=== PATIENT | female | born 1945 | race Caucasian/White ===

== ENCOUNTER 2024-03-11 23:25 | Inpatient (IN) | payer MEDICARE, OTHER, SELFPAY ==
[2024-03-11 20:47] VITALS: BP 157/98
[2024-03-11 21:00] VITALS: BP 162/85; BMI 20.4
[2024-03-11 21:18] LABS: % Basophils 0.7 % (0-2); % Eosinophils 3.4 % (0-6); % Immature Granulocytes 0.3 % (0-0.5); % Lymphocytes 14.9 % (20.5-51.1); % Monocytes 6.5 % (1.7-9.3); % Neutrophils 74.2 % (42.2-75.2); Absolute Basophils 0.1 10^3/uL (0-0.2); Absolute Eosinophils 0.3 10^3/uL (0-0.7); Absolute Lymphocytes 1.4 10^3/uL (1.2-3.4); Absolute Monocytes 0.6 10^3/uL (0.1-0.6); Hematocrit 37.6 % (37.0-47.0); Hemoglobin 12.6 g/dL (12.0-16.0); Mean Corp Hgb Conc. 33.5 g/dL (33.0-37.0); Mean Corpuscular Hgb 33.6 pg (27.0-31.0); Mean Corpuscular Volume 100.3 fL (81.0-99.0); Mean Platelet Volume 9.7 fL (7.4-10.4); Nucleated Red Blood Cells % 0 %; Platelet Count 253 10^3/uL (130-400); Red Blood Cell Count 3.75 10^6/uL (4.20-5.40); White Blood Cell Count 9.4 10^3/uL (4.8-10.8)
--- NOTE | 2024-03-11 21:38 | ED.GENMED ---
History of Present Illness
General
Chief Complaint: Breathing Problem
Source: patient and family
Exam Limitations: none
Time Seen by Provider: 03/11/24 21:14
Nursing documentation reviewed up to this point in time: agreed with
History of Present Illness
History of Present Illness:
78-year-old female nondrinker non-smoker lives in assisted living with her dog she has had cough for a few weeks for PT OT said that her pulse ox was low she went to see her PCP had an outpatient x-ray [facility] showed bilateral pneumonia
prescription for her nebulizer and antibiotic was mailed and apparently was not able to be filled here she was hypoxic placed on oxygen feeling a bit better no hemoptysis, no sputum production no leg edema had pneumonia years ago with similar
symptoms had a stent a few years ago with not similar symptoms to today she feels very short of breath with any activity
Past History
Past History
ED Past Medical History: CAD; Negative CHF
Social History
Tobacco: Non-smoker
Drug: None
Personal:
Living: alone
Employment: Retired
Review of Systems
Review of Systems
All Other Systems: Not applicable
Constitutional: Reports fatigue; Denies fever
Respiratory: Reports cough and trouble breathing
Cardiac: Reports no symptoms
ABD/GI: Reports no symptoms
: Reports no symptoms
Musculoskeletal: Reports no symptoms
Skin: Reports no symptoms
Phy Exam
Physical Exam
Physical Exam:
Physical Exam
General: 78-year-old female hypoxic coughing
Neck: No jaundice
Heart: s1/s2 regular rate and rhythm, no murmur. equal radial pulses.
Lungs: Fair air movement with wheeze
Abdomen: Nontender
Neuro: alert and oriented. no focal neurological deficits
Skin: no rash
Psychiatric: well kept. interactive and cooperative
Extremities: no edema. no calf tenderness.
Scores
Heart Failure Risk
Heart Failure Risk Score: Not Applicable
Course
Orders/Labs/Results
Orders:
Orders
03/11/24 21:11
Basic Metabolic Panel Urgent
Complete Blood Count/With Diff Urgent
03/11/24 21:15
Electrocardiogram (*1) Urgent
Reason for Study: Shortness of Breath
EKG- Treatment ONCE
CR Chest - 2 Views Urgent
Comment:
Reason For Exam: soob
03/11/24 21:27
Dexamethasone Sod Phosphate [Decadron] 6 mg IV NOW STA
Ipratropium/Albuterol Sulfate [Duoneb] 3 ml INH R NOW STA
03/11/24 22:06
Azithromycin [Zithromax] 500 mg PO NOW STA
CefTRIAXone [Rocephin] 1,000 mg IV NOW STA
03/11/24 23:09
Admit/Transfer Patient As Directed
Co-Sign Provider:
Level of Care: Inpatient admission
Assign to:: Telemetry
Physician / Group: luis armando
Diagnosis: interstitial pneumonitis
Reason for Telemetry: Arrhythmia
Date to Stop Telemetry: 03/14/24
Time to Stop Telemetry: 11:00
Reason for Hospitalization: interstitial pneumonitis
Expected length of stay greater than two midnights?: Yes
ELOS- Estimated Length of Stay in days: 2
I certify the patient meets the requirements for IP care: Yes
03/11/24 23:10
Code Status As Directed
Resuscitation Status: Do not resuscitate
Reached after discussion with pt or family/Healthcare POA: Yes
DNR Bracelet Application ONCE
PRN Pain Medication Management As Directed
May give lesser potent ordered pain med per pt: Yes
preference::
Protocol:: Medication orders for pain may be administered in a
manner that supports deferring to patient preference
when the pt is:
- Requesting an ordered lesser potent pain medication.
Least to most potent pain medications are defined
as: acetaminophen < NSAID < tramadol < opioids
(morphine, oxycodone, hydromorphone).
- Requesting a lesser dose of the same medication IF
ORDERED.
- Requesting a less intrusive route of administration
if both routes are prescribed by the provider (PO <
IV).
03/11/24 23:13
Stool Culture Urgent
SARAH Source: Feces/Stool
Specimen Description:
03/12/24 00:12
Azithromycin 500 mg/250 ml [Zithromax Infusion] 500 mg in 250 ml IV Q24H
CefTRIAXone [Rocephin] 1,000 mg IV Q24H
Cholecalciferol (Vitamin D3) [VITAMIN D3 (cholecalciferol)] 25 mcg PO DAILYPRN PRN
Dexamethasone Sod Phosphate [Decadron] 4 mg IV Q8H
03/12/24 00:12
Activity As Directed
Activity Level: As Tolerated
Pneumatic Compression Sleeves As Directed
Type: Knee high
Vital Signs As Directed
Frequency: Per unit guidelines
DX Deep Vein Thrombosis Video Routine
03/12/24 06:00
Complete Blood Count/With Diff IN AM
Comprehensive Metabolic Panel IN AM
03/12/24 08:00
Acetaminophen [Tylenol] 1,000 mg PO BID
Ipratropium/Albuterol Sulfate [Duoneb] 3 ml INH R QID
Valsartan [Diovan] 40 mg PO DAILY
03/12/24 Dinner
Regular
03/12/24 22:00
Atorvastatin [Lipitor] 10 mg PO HS
Metoprolol Xl [Toprol Xl] 12.5 mg PO HS
03/14/24 11:00
DC Protocol for Telemetry ONCE
Abnormal Lab Results
03/11/24
21:11
RBC 3.75 L 10^6/uL
(4.20-5.40)
MCV 100.3 H fL
(81.0-99.0)
MCH 33.6 H pg
(27.0-31.0)
Absolute Neuts (auto) 7.0 H 10^3/uL
(1.4-6.5)
Lymphocytes % 14.9 L %
(20.5-51.1)
BUN 26 H mg/dl
(7-17)
03/11/24 21:11
03/11/24 21:11
Vital Signs
Initial and Last Documented VS:
Initial Vital Signs
Temp Pulse Resp BP Pulse Ox
98.8 F 103 22 157/98 88
03/11/24 20:47 03/11/24 20:47 03/11/24 20:47 03/11/24 20:47 03/11/24 20:47
Last Documented Vital Signs
Temp Pulse Resp BP Pulse Ox
98.8 F 93 25 143/79 93
03/11/24 20:47 03/12/24 00:00 03/12/24 00:00 03/12/24 00:00 03/12/24 00:00
MDM/Problems Addressed
Differential Diagnosis Includes:
Pneumonia bronchitis heart failure less likely PE
MDM/Problems Addressed:
Shortness of breath
Chronic conditions affecting care: CAD
Acute Exacerbation and/or Progression of Chronic Illness: CAD
*Radiology
Radiology exam reviewed: preliminary read by ED provider
*Pulse Oximetry
Patient hypoxic: yes
*EKG
Interpreted by ED Provider?: Yes
Interpretation: normal
Comparison EKG: no comparison EKG present
Heart Rate: 78
Rate: normal
Rhythm: sinus
Ischemia: no ischemia
*Critical Care Note
Total Time (30-74mins, 75-104mins- exclusive of procedures): Not Applicable
ED Attending Note
-
Portions of this chart may have been created with voice recognition software.� Occasional wrong word or��sound alike� substitutions may have occurred due to the inherent limitations of voice recognition software.
Discharge Plan
Departure
Patient Disposition: Admit
Date of Disposition: 03/11/24
Time of Disposition: 22:31
Admit to: Med/Surg
Presentation/result/management discussed w/ accepting MD/DO: Hospitalist
Patient with high blood pressure during this ER visit?: No
Condition: Fair
Covid-19: Not Applicable
Discharge Problem:
Acute hypoxic respiratory failure, Pneumonia
Interventions
Interventions:
*Risk Screen - Suicide Last Done: 03/11/24 20:47
*General Assessment Last Done: 03/11/24 20:47
*Neglect/Abuse Screening Last Done: 03/11/24 20:47
ED- Fall Risk Assessment Last Done: 03/12/24 00:10
*ED COVID-19 Vaccine History Last Done: 03/11/24 20:47
*Nursing Disposition Last Done: 03/12/24 00:10
ED- Cardiac Assessment Last Done: 03/11/24 21:00
ED- Pulmonary Assessment Last Done: 03/11/24 21:00
Discharge Date and Time
Discharge Date/Time: 03/12/24 00:10
[2024-03-11 21:46] LABS: Blood Urea Nitrogen 26 mg/dl (7-17); Calcium 9.4 mg/dl (8.4-10.2); Carbon Dioxide 23 mmol/L (22-30); Chloride 103 mmol/L (98-107); Estimated Creatinine Clearance 42 ml/min; Glucose 97 mg/dl (70-99); Sodium 140 mmol/L (135-145); eGFR > 60.00
[2024-03-11 22:39] VITALS: BP 154/98
[2024-03-11] MEDS: ROCEPHIN 1000 MG IV (22:50)
[2024-03-11] MEDS: DUONEB 3 ML INH (22:50)
[2024-03-11] MEDS: ZITHROMAX 500 MG PO (22:50)
[2024-03-11] MEDS: DECADRON 6 MG IV (22:50)
[2024-03-11 23:00] VITALS: BP 138/88
--- NOTE | 2024-03-11 23:14 | HPS.HSE ---
Family Physician
-
Family Physician: NOT KNOW UNKNOWN - PT DOES
Chief Complaint
-
cough
History of Present Illness
78-year-old female past medical history of CAD with stent, arthritis, who lives at assisted living with her dog presenting with dry cough for a few weeks associate with shortness of breath. Her pulse ox was low and she went to see her primary care
physician today and had outpatient x-ray at [facility] today which showed bilateral pneumonia. She was told to come to the emergency room.
She denies any fevers or chills. Denies any chest pain. Denies sore throat or runny nose. Denies sick contacts. She was tested for COVID and influenza primary care physician office today negative. No history of smoking.
She has been having diarrhea for the past few days and today she noticed bright red blood in the stool. No history of hemorrhoids. No rectal pain. Denies abdominal pain or nausea or vomiting. She denies prior EGD or colonoscopy. No recent
antibiotic use.
Medical History
Past Medical History
Past Medical History: Reports Other ( CAD with stent, arthritis,)
Past Surgical History: Reports None
Social History
Tobacco: Non-smoker
Alcohol: None
Drug: None
Family History
Family History: Not pertinent
Allergies / Home Medications
Allergies reflects when Allergies were last updated in [employer].
Home Medications with original date entered in [employer]
Allergy/Medication List:
Allergies
Allergy/AdvReac Type Severity Reaction Status Date / Time
No Known Allergies Allergy Unverified 03/11/24 22:46
Home Medications
acetaminophen 500 mg tablet 1,000 mg PO BID 03/11/24
aspirin 81 mg tablet,delayed release 81 mg PO HS 03/11/24
atorvastatin 10 mg tablet 10 mg PO HS 03/11/24
cholecalciferol (vitamin D3) 25 mcg (1,000 unit) tablet 25 mcg PO DAILYPRN PRN supplement 03/11/24
metoprolol succinate 25 mg tablet,extended release 24 hr 12.5 mg PO HS 03/11/24
nabumetone 500 mg tablet 500 mg PO BID 03/11/24
valsartan 40 mg tablet 40 mg PO DAILY 03/11/24
Review of Systems
-
History Source: Patient
A 12 point ROS was completed and negative except as noted: Yes
Constitutional: Reports No Symptoms
EENT: Reports No Symptoms
Respiratory: Reports See HPI
Cardiac: Reports No Symptoms
Abdomen/GI: Reports See HPI
: Reports No Symptoms
Musculoskeletal: Reports No Symptoms
Skin: Reports No Symptoms
Neurological: Reports No Symptoms
Endocrine: Reports No Symptoms
Hematologic/Lymphatic: Reports No Symptoms
Psych: Reports No Symptoms
Physical Exam
Vital Signs
Vital Signs
Temp Pulse Resp BP Pulse Ox
98.8 F 94 27 138/88 94
03/11/24 20:47 03/11/24 22:45 03/11/24 23:00 03/11/24 23:00 03/11/24 23:00
Physical Exam
General: Well Developed, Well Nourished and No Apparent Distress
HEENT: NormoCephalic, Moist mucous membranes and Atraumatic
Respiratory: Rales
Cardiac: S1/S2 and Regular Rhythm; No Murmur or Rub
GI: Soft, Non Tender, Non Distended and Normal Bowel Sounds; No Organomegaly
Rectal: Deferred by Provider
Musculoskeletal: No Clubbing, No Cyanosis and No Edema
Skin: No Rash
Neuro: Nonfocal/grossly intact
Laboratory Results
-
03/11/24 21:11
03/11/24 21:11
Laboratory Results
Total Bilirubin Cancelled 03/11/24 21:11
AST Cancelled 03/11/24 21:11
ALT Cancelled 03/11/24 21:11
Alkaline Phosphatase Cancelled 03/11/24 21:11
Data Reviewed
-
Lab Data: Labs Reviewed by me
Old Records: Reviewed
Impression/Plan
-
IMPRESSION:
PLAN:
# Severe inflammatory interstitial pneumonitis
-Tested for COVID and influenza and negative at primary care physician
-Patient on 2 L oxygen
-Bilateral crackles on examination
-Chest x-ray shows severe interstitial disease throughout both lungs mixed with mild diffuse groundglass opacity suggestive of severe inflammatory interstitial pneumonitis, mild cardiomegaly
-Ceftriaxone/azithromycin
-Dexamethasone 4 mg every 8 hours
-DuoNeb every 6 hours
# Diarrhea with bright red blood per rectum possibly diverticular versus hemorrhoids versus gastroenteritis
-Unlikely upper GI bleeding related to nabumetone
-Hold aspirin, nabumetone
-Hemoglobin stable at 12.6
-Continue to monitor for further episodes of bleeding
-check stool culture
-GI consult if persistent bleeding or anemia
CAD with history of stent
-Continue statin, metoprolol
-Hold aspirin
Essential hypertension
-Continue valsartan
Arthritis
-Hold nabumetone
DNR/DNI
DVT prophylaxis�SCDs
Regular diet
[2024-03-12] VITALS (7 sets, daily range): BP systolic 93–161; BP diastolic 49–81; BMI 20.7
[2024-03-12] MEDS: DECADRON 4 MG IV ×4 (01:08→23:19)
--- NOTE | 2024-03-12 01:11 | PTCARENOTE ---
Pt admitted to 2N. AAOx3, forgetful at times but pleasant. NRS in the monitor. Lung sounds are coarse, saO2 94-96% 4L NC. Shallow breathing and productive cough. no c/o pain. Pt appears comfortable in bed and call cole within reach. Will continue w/
tx plan.
[2024-03-12 06:51] LABS: ALT (SGPT) 14 U/L (0-35); AST (SGOT) 22 U/L (14-36); Albumin 3.5 g/dl (3.5-5.0); Alkaline Phosphatase 78 U/L (38-126); Blood Urea Nitrogen 23 mg/dl (7-17); Calcium 9.2 mg/dl (8.4-10.2); Carbon Dioxide 21 mmol/L (22-30); Chloride 106 mmol/L (98-107); Estimated Creatinine Clearance 46 ml/min; Glucose 144 mg/dl (70-99); Potassium 5.2 mmol/L (3.5-5.1); Sodium 141 mmol/L (135-145); Total Bilirubin 0.5 mg/dl (0.2-1.3); Total Protein 6.4 g/dl (6.3-8.2); eGFR > 60.00
[2024-03-12 07:00] LABS: Hematocrit 33.8 % (37.0-47.0); Hemoglobin 11.2 g/dL (12.0-16.0); Mean Corp Hgb Conc. 33.1 g/dL (33.0-37.0); Mean Corpuscular Hgb 33.6 pg (27.0-31.0); Mean Corpuscular Volume 101.5 fL (81.0-99.0); Mean Platelet Volume 10.6 fL (7.4-10.4); Platelet Count 231 10^3/uL (130-400); Red Blood Cell Count 3.33 10^6/uL (4.20-5.40); Red Cell Dist. Width 12.9 % (11.5-14.5); White Blood Cell Count 5.4 10^3/uL (4.8-10.8)
[2024-03-12] MEDS: DUONEB 3 ML INH ×4 (07:17→18:11)
[2024-03-12] MEDS: DIOVAN 40 MG PO (08:46)
[2024-03-12] MEDS: TYLENOL 1000 MG PO ×2 (08:46→19:37)
[2024-03-12 11:01] LABS: % Basophils 0.6 % (0-2); % Eosinophils 0.2 % (0-6); % Immature Granulocytes 0.2 % (0-0.5); % Lymphocytes 10.6 % (20.5-51.1); % Monocytes 0.9 % (1.7-9.3); % Neutrophils 87.5 % (42.2-75.2); Absolute Lymphocytes 0.6 10^3/uL (1.2-3.4); Absolute Monocytes 0.1 10^3/uL (0.1-0.6); Absolute Neutrophils 4.7 10^3/uL (1.4-6.5); Nucleated Red Blood Cells % 0 %
--- NOTE | 2024-03-12 12:08 | W.PN.HOSP.TC ---
Today's Communication/Plan
-
See plan
Assessment / Plan
Assessment / Plan
Impression:
Presentation with exertional dyspnea
Acute hypoxic respiratory insufficiency with pulse ox of 88% on room air.
Bilateral diffuse interstitial pulmonary infiltrates.
Diarrheal illness with hematochezia
Other conditions:
CAD with prior history of stent.
Essential hypertension impaired
Osteoarthritis
Spinal stenosis.
History of a left hip fracture with ORIF 2022.
Plan:*
Acute hypoxic respiratory insufficiency.
Bilateral pulmonary infiltrates.
Exertional dyspnea for at least 2 weeks with nonproductive cough
Denies any fever, chest pain.
Differential diagnosis: Atypical pneumonia, versus interstitial pneumonitis, versus pulmonary edema cardiac/noncardiac, reasonable concern for thromboembolic disease/PE given sedentary lifestyle.
Serology for interstitial lung disease ordered.
Prostate check BNP.
Echo.
CT PE protocol
Repeat influenza and COVID serology.
Consider pulmonology consult
Continue current coverage for community-acquired pathogens including ceftriaxone and Zithromax per
Continue corticosteroids per
Evaluated procedure BNP consider trial of diuresis.
Continue O2 supplementation to keep pulse ox above 92%
Diarrheal illness with hematochezia.
Denies any abdominal pain.
Benign abdominal examination.
Check stool for C. difficile.
Hemoglobin stable at 12.6.
Hold aspirin with hematochezia
CAD with history of stent
Continue metoprolol and atorvastatin.
Resume aspirin if no hematochezia.
Hypertension.
Continue valsartan
Osteoarthritis baseline hold nabumetone acutely.
Anticipated Discharge: 24 - 48 hours
Subjective/Interval History
-
Date of Service: March 12, 2024
Objective Data
-
Labs:
Laboratory Results
03/12/24
05:29
WBC 5.4
Hgb 11.2 L
Hct 33.8 L
Plt Count 231
Sodium 141
Potassium 5.2 H
Chloride 106
Carbon Dioxide 21 L
BUN 23 H
Creatinine 0.7
Glucose 144 H
Calcium 9.2
Total Bilirubin 0.5
AST 22
ALT 14
Alkaline Phosphatase 78
Vital Signs:
Vital Signs
Temp Pulse Resp BP Pulse Ox
98.3 F 88 16 104/55 96
03/12/24 11:26 03/12/24 11:35 03/12/24 11:35 03/12/24 11:26 03/12/24 11:35
I&O
03/11/24 03/12/24 03/13/24
06:59 06:59 06:59
Intake Total 120 / 120
Balance 120 / 120
Physical Exam
-
General: Well Developed and No Apparent Distress
HEENT: Normocephalic, Atraumatic and Moist Mucous Membranes
Respiratory: Wheezes (Diffuse biphasic) and Rhonchi
Cardiac: Regular Rhythm and S1/S2; Negative Murmur, Rub or Gallop
GI: Soft, Nontender, Nondistended and Normal Bowel Sounds; Negative Organomegaly
Rectal: Deferred by Provider
Musculoskeletal: No Clubbing, No Cyanosis and No Edema
Skin: Negative Rash
Neuro: Nonfocal/Grossly Intact
[2024-03-12 12:51] LABS: Erythrocyte Sed Rate 20 mm/hour (0-20)
[2024-03-12 13:08] LABS: Procalcitonin < 0.05 ng/ml (0.0-0.25)
[2024-03-12 13:19] LABS: Creatine Phosphokinase 53 U/L (30-135); Uric Acid 6.4 mg/dl (2.5-6.2)
[2024-03-12 13:43] LABS: NT-proBNP 2930 pg/ml
--- NOTE | 2024-03-12 13:45 | CM ---
Addendum entered by Brenda Patel 03/12/24 16:23:
Patient seen at bedside. Patient plan is to go home with her dog and PT/OT from [facility]. Await physician and PT/OT assessments. Patient currently on O2 and would be able to go to [facility] if she had 3 days INP admission to and needed
Skilled level of care. CM will continue to follow for discharge planning needs.
Plan; SNF vs home with VN pending medical treatment plan
Original Note:
Patient from [facility] where she lives with her dog. Per Karol from [place] and has had [facility] in the past. Patient has had an aide in the apartment but unclear how many
hours a day. CM will send referral to [facility] to review SNF options and facility does have a bridge to home program if personal care is needed. However patient would need to pay privately in personal care. CM will send referral to SNF for
[facility] to be aware.CM will continue to follow for discharge planning needs.
Plan; home with VN ([facility]) vs SNF at [facility].
--- NOTE | 2024-03-12 16:01 | W.PN.UPDATE ---
Update Note
Progress Note Update
CT chest negative for PE.
Findings consistent with scattered foci of reticular interstitial thickening, groundglass opacity, bronchiectasis bilaterally. Differential diagnosis includes acute interstitial pneumonitis and chronic interstitial fibrosis. No definitive lobar
pneumonia, pleural effusion, pneumothorax. Large hiatal hernia.
Elevated pro CHF BNP.
Echo pending
Will provide single dose of Lasix 40 mg IV and follow response.
[2024-03-12] MEDS: LASIX 20 MG IV (17:06)
[2024-03-12] MEDS: TOPROL XL 12.5 MG PO (20:27)
[2024-03-12 20:55] LABS: COVID-19 Antigen Negative (Negative)
[2024-03-12] MEDS: LIPITOR 10 MG PO (21:24)
[2024-03-12] MEDS: STERILE WATER FOR INJECTION 10 ML IV (21:24)
[2024-03-12] MEDS: ZITHROMAX INFUSION 250 IV (21:24)
[2024-03-12] MEDS: ROCEPHIN 1000 MG IV (21:24)
[2024-03-12] MEDS: ANESTHETIC LOZENGE 1 LOZENGE PO (21:45)
--- NOTE | 2024-03-12 22:43 | PTCARENOTE ---
Pt HR was in the 120-130 int he beginning of the shift. ST in the tele monitor. Asymptomatic. Pt metoprolol was given early. Pt HR is 100's. will continue w/ tx plan
[2024-03-13 03:40] VITALS: BP 105/61
[2024-03-13 07:45] VITALS: BP 118/67
[2024-03-13] MEDS: XOPENEX 0.63 MG INHALANT SOLUTION INH ×3 (07:54→19:58)
[2024-03-13] MEDS: DIOVAN 40 MG PO (08:00)
[2024-03-13] MEDS: DECADRON 4 MG IV ×2 (08:00→17:41)
[2024-03-13] MEDS: TYLENOL PO (10:38)
--- NOTE | 2024-03-13 10:49 | W.PN.HOSP.TC ---
Today's Communication/Plan
-
see A/P
Assessment / Plan
Assessment / Plan
Impression:
Presentation with exertional dyspnea
Acute hypoxic respiratory insufficiency with pulse ox of 88% on room air.
Bilateral diffuse interstitial pulmonary infiltrates.
Diarrheal illness with hematochezia
Other conditions:
CAD with prior history of stent.
Essential hypertension
Osteoarthritis
Spinal stenosis.
History of a left hip fracture with ORIF 2022.
Plan:
Acute hypoxic respiratory insufficiency.
Bilateral pulmonary infiltrates.
Exertional dyspnea for at least 2 weeks with nonproductive cough
Denies any fever, chest pain.
Differential diagnosis: Atypical pneumonia, versus interstitial pneumonitis, versus pulmonary edema cardiac/noncardiac, reasonable concern for thromboembolic disease/PE given sedentary lifestyle.
Serology for interstitial lung disease ordered.
BNP 2900. s/p IV Lasix 20 mg x1 dose on 03/12
Echo unrevealing: LVEF > 75%. No regional wall motion abnormalities. No significant valvular disease. No evidence of pulmonary hypertension
CT PE:
1. No evidence of pulmonary embolism or thoracic aortic dissection.
2. Scattered foci of reticular interstitial thickening, groundglass opacity, and bronchiectasis bilaterally. Differential diagnosis includes acute interstitial pneumonitis and chronic interstitial fibrosis. No definite lobar pneumonia, pleural
effusion, or pneumothorax.
3. Large hiatal hernia, containing the majority of the stomach.
Influenza and COVID serology are negative.
Pulmonology consult
Continue current coverage for community-acquired pathogens including ceftriaxone and Zithromax 5 days total. Although procal noted negative
Continue corticosteroids, currently on Decadron 4 mg Q8H
Continue O2 supplementation to keep pulse ox above 92%. Weaned O2 as tolerated, currently on 2L NC
Diarrheal illness with hematochezia.
Denies any abdominal pain.
Benign abdominal examination.
C. difficile antigen positive, toxin negative- since pt symptomatic with watery diarrhea, would empirically treat with PO vancomycin for 10 days total.
Check Norovirus,
Follow stool culture
Hemoglobin was at 12.6 on admission, today at 11.2, cont to monitor Hgb closely
Hold aspirin with hematochezia (GIB appear to have resolved)
CAD with history of stent
Continue metoprolol and atorvastatin.
Resume aspirin if no hematochezia.
Hypertension.
Continue valsartan
Osteoarthritis baseline hold nabumetone acutely.
DVT ppx: SCD
FC
Dispo: PT OT eval
DW RN
DW daughter at bedside
total time spent 51 min
Anticipated Discharge: 24 - 48 hours
Subjective/Interval History
-
Date of Service: March 13, 2024
Objective Data
-
Vital Signs:
Vital Signs
Temp Pulse Resp BP Pulse Ox
37.0 C 98 16 118/67 96
03/13/24 07:45 03/13/24 07:57 03/13/24 07:57 03/13/24 07:45 03/13/24 07:57
I&O
03/12/24 03/13/24 03/14/24
06:59 06:59 06:59
Intake Total 120 / 120 18690 120 / 120
Output Total 300 / 300
Balance 120 / 120 1869 -180 / -180
Review of Systems
-
Respiratory: Reports Trouble Breathing
Abdomen/GI: Reports Diarrhea; Denies Bloody Stools (resolved )
Physical Exam
-
General: Well Developed, Comfortable, Respiratory Distress and Conversant
HEENT: Normocephalic, Atraumatic, Moist Mucous Membranes and Oxygen (2L NC)
Respiratory: Crackles (BL bases) and Non Labored Respirations; Negative Accessory Resp Muscle Use
Cardiac: Regular Rhythm and S1/S2; Negative Murmur, Rub or Gallop
GI: Soft, Nontender, Nondistended and Normal Bowel Sounds; Negative Organomegaly
Rectal: Deferred by Provider
Musculoskeletal: No Clubbing, No Cyanosis and No Edema
Skin: Negative Rash
Neuro: Awake
Psych: Calm and Intact Judgement/Insight
Data Reviewed
-
CT Scan: Report Reviewed by me
Labs: Labs Reviewed by me
[2024-03-13 11:25] VITALS: BP 108/62
--- NOTE | 2024-03-13 12:02 | CON.PUL ---
Consultation
Consultation Request
Date/Time Consultation Requested: 03/13/2024 - 112
Date/Time Consultation Performed: 03/13/2024 - 1155
Requesting Provider: Dr. Barreto
Performing Provider: Dr. Prado
Reason for Consultation: Suspected ILD with acute exacerbation; hypoxia
Medical History
-
Chief Complaint: Bright red blood per rectum
History of Present Illness:
78-year-old female with a past medical history of CAD s/p stent with history of CA, vitamin D deficiency, lumbar radiculitis with arthritis who presents with worsening SOB associated with dry cough. She currently resides at a assisted living with
her dog. She saw her PCP prior to arrival with outpatient XR done at [facility] showing bilateral pneumonia and was told to come to the ER. She has no fevers or chills or recent sick contacts. She was tested for COVID-19 + flu and was negative
[employer]. She does report having diarrhea for the past few days and has also noticed bright red blood in her stool. No history of hemorrhoids or rectal pain, abdominal pain, nausea or vomiting. In the ER she was afebrile to 98.8 �F, pulse rate 103,
breathing at 20 breaths/min, BP 157/98 and saturating 88% on room air. Saturations improved to 95% with 2 L/min. Initial labs showed Hb 12.6, WBC 9.4, BUN 26, and proBNP 2930. CXR collected showing severe interstitial lung disease with mixed
diffuse groundglass opacities suggestive of inflammatory interstitial pneumonitis possibly with pulmonary edema. She was admitted to telemetry under the hospitalist for interstitial pneumonitis, started on antibiotics, given a dose of Lasix on
03/12, and CTA chest performed on 03/12/2024 was negative for an acute PE and showed scattered foci of reticular interstitial thickening with groundglass opacities and bronchiectasis. Also a large hiatal hernia. Due to abnormal CT findings,
pulmonary service now consulted for additional management/recommendations.
When I saw the patient he was resting in bed on 3 L/min saturating 95%. She does not follow with a lung doctor and she is a never smoker. She says her shortness of breath is better. She denies having history of lung conditions. 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 She does not believe she was ever exposed to asbestos and she says she
is never been on amiodarone. She has no prior history of interstitial lung disease or autoimmune disorder/connective tissue disease. She denies any joint stiffness, swelling or redness. She does endorse a dry cough that she has had for few weeks.
She has a dog at home which is hypoallergenic. No birds although her daughter has chickens but she is not exposed to it.
PMHx: Lumbar radiculitis, CAD with history of CA s/p stent, vitamin D deficiency, arthritis, cataracts
PSHx: Cholecystectomy, knee replacement, cataract surgery bilaterally, electrical stimulator in the back, coronary stent
Past Medical History
Past Medical History: Other (Above as per HPI)
Past Surgical History: Other (Above as per HPI)
Social History
Tobacco: Non-smoker
Alcohol: None
Drug: None
Family History
Family History: Reviewed & Not Pertinent
Allergies / Home Medications
Allergies
Allergy/AdvReac Type Severity Reaction Status Date / Time
No Known Allergies Allergy Unverified 03/11/24 22:46
Home Medications
�Medication �Instructions �Recorded �Confirmed �Last Taken �Type
acetaminophen 500 mg tablet 1,000 mg PO BID 03/11/24 03/11/24 03/11/24 History
aspirin 81 mg tablet,delayed 81 mg PO HS 03/11/24 03/11/24 03/10/24 History
release
atorvastatin 10 mg tablet 10 mg PO HS 03/11/24 03/11/24 03/10/24 History
cholecalciferol (vitamin D3) 25 25 mcg PO DAILYPRN PRN supplement 03/11/24 03/11/24 Unknown History
mcg (1,000 unit) tablet
metoprolol succinate 25 mg 12.5 mg PO HS 03/11/24 03/11/24 03/10/24 History
tablet,extended release 24 hr
nabumetone 500 mg tablet 500 mg PO BID 03/11/24 03/11/24 03/11/24 History
valsartan 40 mg tablet 40 mg PO DAILY 03/11/24 03/11/24 03/11/24 History
Review of Systems
-
History Source: Patient
All other systems: Negative unless noted
Vitals / Labs / Diagnostic Testing
Vital Signs
Temp Pulse Resp BP Pulse Ox
98.3 F 96 16 108/62 96
03/13/24 11:25 03/13/24 11:25 03/13/24 11:25 03/13/24 11:25 03/13/24 11:25
Lab Data
03/12/24 05:29
03/12/24 05:29
Microbiology
03/12/24 08:14 Feces/Stool - Final
Negative for Norovirus GI and GII.
03/12/24 08:14 Feces/Stool Salmonella/Shigella Culture - Preliminary
Culture in Progress
03/12/24 08:14 Feces/Stool Campylobacter Culture - Preliminary
Culture in Progress
03/12/24 08:14 Feces/Stool C. difficile GDH Antigen & Toxins - Final
C. difficile antigen positive, toxin negative.
Clostridium difficile present, but toxin not detected.
Patient may be a carrier, colonized with nontoxinogenic
strain or the level of toxin in sample is below detection
limits. This information should be used in conjunction with
the patient's clinical history.
03/12/24 13:52 Nasal Swab Influenza Types A & B ([facility]) - Final
Negative for Influenza A & B, NAAT
Negative results must be combined with clinical observations
and patient history.
Nucleic Acid Amplification test (NAAT)performed on the
[employer] platform.
Diagnostic Testing:
Physical Exam
-
HEENT: Normocephalic and Anicteric
Cardiovascular: S1/S2 and Peripheral Edema (negative)
Respiratory: Wheeze (negative), Rales (Bases-middle lung beebe bilaterally), Rhonchi (negative) and Accessory Resp Muscle Use (negative)
GI: Soft, Non Distended, Non Tender and Normal Bowel Sounds
Neurology: AO x 3 and Tremors (negative)
Skin: Warm and Dry
General: Respiratory Distress (negative), Comfortable, Chills (negative) and Sweats (negative)
Assessment
-
Assessment: 78-year-old female with a past medical history of CAD s/p stent with history of CA, vitamin D deficiency, lumbar radiculitis with arthritis who presents with worsening SOB associated with dry cough. She currently resides at a assisted
living with her dog. She saw her PCP prior to arrival with outpatient XR done at [facility] showing bilateral pneumonia and was told to come to the ER. She has no fevers or chills or recent sick contacts. She was tested for COVID-19 + flu and
was negative [employer]. She does report having diarrhea for the past few days and has also noticed bright red blood in her stool. No history of hemorrhoids or rectal pain, abdominal pain, nausea or vomiting. In the ER she was afebrile to 98.8 �F, pulse
rate 103, breathing at 20 breaths/min, BP 157/98 and saturating 88% on room air. Saturations improved to 95% with 2 L/min. Initial labs showed Hb 12.6, WBC 9.4, BUN 26, and proBNP 2930. CXR collected showing severe interstitial lung disease with
mixed diffuse groundglass opacities suggestive of inflammatory interstitial pneumonitis possibly with pulmonary edema. She was admitted to telemetry under the hospitalist for interstitial pneumonitis, started on antibiotics, given a dose of Lasix
on 03/12, and CTA chest performed on 03/12/2024 was negative for an acute PE and showed scattered foci of reticular interstitial thickening with groundglass opacities and bronchiectasis. Also a large hiatal hernia. Due to abnormal CT findings,
pulmonary service now consulted for additional management/recommendations.
Chronic conditions [employer]: Lumbar radiculitis, CAD with history of CA s/p stent, vitamin D deficiency, arthritis, cataracts
Impression:
#Acute respiratory failure with hypoxia on supplemental oxygen suspected to be from ILD-exacerbation (differential includes NSIP vs chronic HP vs asbestosis; unlikely UIP); MF-PNA + ADHF on DDx
#Large hiatal hernia
#Bright red blood per rectum - resolved
#CAD with history of CA s/p stent
#Osteoarthritis
#Lumbar radiculitis
Plan:
- Her CTA chest shows mosaic attenuation with subpleural reticular opacities with areas of traction bronchiectasis and a large hiatal hernia which is causing atelectasis to the adjacent lung parenchyma
- I have no prior imaging to assess the chronicity of this however this is not a classic UIP pattern; she does have some foci of intercostal calcification as well as along her medial right sided pleura, hence this does bring up possibility of
asbestosis
- Continue with systemic steroids and wean as clinically tolerated - she is currently on Decadron 4 mg IV q8hr
- Maintain euglycemia while on high dose steroids with goal BG >100 and <180mg/dL
- CTD workup is pending including HEBER screen, Yumiko 1 antibody, SSA/SSB, scleroderma panel, anti-� dsDNA AB, HP panel, RF factor, JULIANNA level and aldolase
- I will add centromere Ab and anti-CCP Ab, plus ESR and CRP
- Of note, steroids were started on evening of 03/11/2024, which was prior to her having her autoimmune/CTD blood work collected, hence normal results may not be reliable
- She is on antibiotics however the CTA chest does not appear like an infectious etiology is the cause, ambrose with a procal of <0.05; if she remains afebrile for next 24 hrs then would narrow Abx or consider stopping altogether
- Currently on ceftriaxone/zithromax
- Trend procal to assure that it remains negative
- Maintain SpO2 >90-94% with supplemental O2 and titrate down as tolerated
- Check ambulatory pulse ox prior to discharge
- If she does not improve with systemic steroids within next 24 hours then would start diuresis given elevated proBNP at 2930 (unknown baseline), however this is less likely given echo on 03/12/2024 showed an underfilled LV with hyperdynamic LVEF
at >75% with no regional WMA and RV was top normal in size with normal systolic function; also no evidence of PH though right sided heart pressures could not be determined
- Continue xopenex
- Considering she had rectal bleeding prior to arrival, would consult GI and maintain large bore IV x2
- Consider holding BB until rectal bleeding resolved for >48-72 hrs, however need to monitor for BB-withdrawal
- Transfuse blood products if needed to keep Hb>7, plt>50k
- Given her diarrhea, follow up stool Cx
- C diff Ag was positive but toxin is negative --> this is indicative of C diff colonization --> no need for PO vanc at this time; please DC; otherwise consult ID for their recs
- Incentive spirometer encouraged
- Replete electrolytes with K>4, Mg>2
- prn nebulized bronchodilators - not currently bronchospastic
- DVT ppx: SCDs for now
Pulmonary service will continue to follow along. I will arrange for outpatient office follow up for radiographic surveillance of her abnormal CT chest findings
Data:
CTA Chest 03/12/2024:
1. No evidence of pulmonary embolism or thoracic aortic dissection.
2. Scattered foci of reticular interstitial thickening, groundglass opacity, and bronchiectasis bilaterally. Differential diagnosis includes acute interstitial pneumonitis and chronic interstitial fibrosis. No definite lobar pneumonia, pleural
effusion, or pneumothorax.
3. Large hiatal hernia, containing the majority of the stomach.
TTE 03/12/2024:
Left ventricle is underfilled. Hyperdynamic LV systolic function. LVEF > 75%.
No regional wall motion abnormalities.
RV is top normal in size with normal systolic function.
No significant valvular disease.
No evidence of pulmonary hypertension though right heart pressures could not be
determined.
No prior study available for comparison.
Total time spent today was 56 minutes for this encounter. Time includes reviewing laboratory test/imaging results, reviewing pertinent medical records, obtaining and reviewing medical history, performing an appropriate exam, ordering medications,
tests and procedures. Time also includes documentation of this encounter, coordinating patient care and communicating with other healthcare professionals. Total time does not include separately billed tests performed on this date of service.
[2024-03-13 15:35] VITALS: BP 102/60
[2024-03-13] MEDS: FIRVANQ 125 MG PO (15:41)
[2024-03-13] MEDS: FLUSH (NSS) 2 FLUSH IV (17:41)
[2024-03-13 19:23] VITALS: BP 105/61
[2024-03-13] MEDS: TYLENOL 1000 MG PO (20:19)
[2024-03-13] MEDS: FIRVANQ PO (21:38)
[2024-03-13] MEDS: ZITHROMAX INFUSION 250 IV (22:26)
[2024-03-13] MEDS: ROCEPHIN 1000 MG IV (22:27)
[2024-03-13] MEDS: STERILE WATER FOR INJECTION 10 ML IV (22:27)
[2024-03-13] MEDS: TOPROL XL 12.5 MG PO (22:27)
[2024-03-13] MEDS: LIPITOR 10 MG PO (22:27)
[2024-03-13 23:26] VITALS: BP 114/62
[2024-03-14] MEDS: DECADRON 4 MG IV ×3 (00:31→16:04)
[2024-03-14 03:13] VITALS: BP 116/67
[2024-03-14 05:44] LABS: Hematocrit 28.8 % (37.0-47.0); Hemoglobin 9.7 g/dL (12.0-16.0); Mean Corp Hgb Conc. 33.7 g/dL (33.0-37.0); Mean Corpuscular Hgb 34.4 pg (27.0-31.0); Mean Corpuscular Volume 102.1 fL (81.0-99.0); Mean Platelet Volume 10.2 fL (7.4-10.4); Platelet Count 231 10^3/uL (130-400); Red Blood Cell Count 2.82 10^6/uL (4.20-5.40); Red Cell Dist. Width 13.1 % (11.5-14.5); White Blood Cell Count 15.9 10^3/uL (4.8-10.8)
[2024-03-14 06:11] LABS: Procalcitonin < 0.05 ng/ml (0.0-0.25)
[2024-03-14 06:17] LABS: Blood Urea Nitrogen 35 mg/dl (7-17); Calcium 8.9 mg/dl (8.4-10.2); Carbon Dioxide 24 mmol/L (22-30); Chloride 105 mmol/L (98-107); Estimated Creatinine Clearance 36 ml/min; Glucose 142 mg/dl (70-99); Magnesium 2.4 mg/dl (1.6-2.3); Phosphorus 3.8 mg/dl (2.5-4.5); Potassium 5.1 mmol/L (3.5-5.1); Sodium 138 mmol/L (135-145); eGFR > 60.00
[2024-03-14 06:30] VITALS: BMI 20.8
[2024-03-14] MEDS: XOPENEX 0.63 MG INHALANT SOLUTION INH ×3 (07:52→20:35)
[2024-03-14 08:00] VITALS: BP 132/71
[2024-03-14] MEDS: FLUSH (NSS) 2 FLUSH IV ×2 (08:48→16:07)
[2024-03-14] MEDS: DIOVAN 40 MG PO (08:49)
[2024-03-14] MEDS: ANESTHETIC LOZENGE 1 LOZENGE PO (08:49)
[2024-03-14] MEDS: TYLENOL PO (08:51)
--- NOTE | 2024-03-14 09:42 | W.PN.PUL3 ---
Today's Communication / Plan
-
Continue systemic steroids and wean as tolerated - lower Decadron to 4 mg IV q12hr starting tomorrow
Xopenex TID
Procal is negative x 2 and she appears nontoxic - would at least narrow antibiotics and consider stopping altogether; rec'd short course if antibiotics continue
Up OOB as tolerated
PT/OT - rec'd home health
Follow-up autoimmune/CTD panel
Wean down O2 to keep SpO2 >90-94%
Outpatient follow-up with full PFTs --> check ambulatory pulse oximetry prior to discharge
Pulmonary service will continue to follow along while she remains hospitalized
Assessment
-
Assessment: 78-year-old female with a past medical history of CAD s/p stent with history of IN, vitamin D deficiency, lumbar radiculitis with arthritis who presents with worsening SOB associated with dry cough. She currently resides at a assisted
living with her dog. She saw her PCP prior to arrival with outpatient XR done at [facility] showing bilateral pneumonia and was told to come to the ER. She has no fevers or chills or recent sick contacts. She was tested for COVID-19 + flu and
was negative [employer]. She does report having diarrhea for the past few days and has also noticed bright red blood in her stool. No history of hemorrhoids or rectal pain, abdominal pain, nausea or vomiting. In the ER she was afebrile to 98.8 �F, pulse
rate 103, breathing at 20 breaths/min, BP 157/98 and saturating 88% on room air. Saturations improved to 95% with 2 L/min. Initial labs showed Hb 12.6, WBC 9.4, BUN 26, and proBNP 2930. CXR collected showing severe interstitial lung disease with
mixed diffuse groundglass opacities suggestive of inflammatory interstitial pneumonitis possibly with pulmonary edema. She was admitted to telemetry under the hospitalist for interstitial pneumonitis, started on antibiotics, given a dose of Lasix
on 03/12, and CTA chest performed on 03/12/2024 was negative for an acute PE and showed scattered foci of reticular interstitial thickening with groundglass opacities and bronchiectasis. Also a large hiatal hernia. Due to abnormal CT findings,
pulmonary service now consulted for additional management/recommendations.
Chronic conditions [employer]: Lumbar radiculitis, CAD with history of IN s/p stent, vitamin D deficiency, arthritis, cataracts
Impression:
#Acute respiratory failure with hypoxia on supplemental oxygen suspected to be from ILD-exacerbation (differential includes NSIP vs chronic HP vs asbestosis; unlikely UIP); MF-PNA vs ADHF on DDx
#Large hiatal hernia
#Bright red blood per rectum - resolved
#CAD with history of IN s/p stent
#Osteoarthritis
#Lumbar radiculitis
Plan:
- Her CTA chest shows mosaic attenuation with subpleural reticular opacities with areas of traction bronchiectasis and a large hiatal hernia which is causing atelectasis to the adjacent lung parenchyma
- I have no prior imaging to assess the chronicity of this however this is not a classic UIP pattern; she does have some foci of intercostal calcification as well as along her medial right sided pleura, hence this does bring up possibility of
asbestosis
- Continue with systemic steroids and wean as clinically tolerated - she is currently on Decadron 4 mg IV q8hr --> wean down to 4mg IV q12hr starting tomorrow AM
- Maintain euglycemia while on high dose steroids with goal BG >100 and <180mg/dL
- CTD workup is pending including HEBER screen, Yumiko 1 antibody, SSA/SSB, scleroderma panel, anti-� dsDNA AB, HP panel, RF factor, JULIANNA level and aldolase
- I added centromere Ab and anti-CCP Ab, and CRP; ESR is low at 20
- Of note, steroids were started on evening of 03/11/2024, which was prior to her having her autoimmune/CTD blood work collected, hence normal results may not be reliable
- She is on antibiotics however the CTA chest does not appear like an infectious etiology is the cause, ambrose with a procal of <0.05 x2; since she has remained afebrile for 24 hrs, would narrow Abx to Unasyn and give short course
- Currently on ceftriaxone/zithromax
- Maintain SpO2 >90-94% with supplemental O2 and titrate down as tolerated
- Check ambulatory pulse ox prior to discharge
- If she deteriorates while on systemic steroids then would start diuresis given elevated proBNP at 2930 (unknown baseline), however this is less likely given echo on 03/12/2024 showed an underfilled LV with hyperdynamic LVEF at >75% with no
regional WMA and RV was top normal in size with normal systolic function; also no evidence of PH though right sided heart pressures could not be determined
- Continue xopenex TID
- Considering she had rectal bleeding prior to arrival, would consult GI and maintain large bore IV x2
- Consider holding BB until rectal bleeding resolved for >48-72 hrs, however need to monitor for BB-withdrawal
- Transfuse blood products if needed to keep Hb>7, plt>50k
- Given her diarrhea, follow up stool Cx
- C diff Ag was positive but toxin is negative --> this is indicative of C diff colonization --> no need for PO vanc at this time; please DC; otherwise consult ID for their recs
- Incentive spirometer encouraged
- Replete electrolytes with K>4, Mg>2
- prn nebulized bronchodilators - not currently bronchospastic
- DVT ppx: SCDs for now; If HB remains stable for 48-72 hrs with no signs of bleeding then would start chemical ppx
Pulmonary service will continue to follow along. I will arrange for outpatient office follow up for radiographic surveillance of her abnormal CT chest findings.
Data:
CTA Chest 03/12/2024:
1. No evidence of pulmonary embolism or thoracic aortic dissection.
2. Scattered foci of reticular interstitial thickening, groundglass opacity, and bronchiectasis bilaterally. Differential diagnosis includes acute interstitial pneumonitis and chronic interstitial fibrosis. No definite lobar pneumonia, pleural
effusion, or pneumothorax.
3. Large hiatal hernia, containing the majority of the stomach.
TTE 03/12/2024:
Left ventricle is underfilled. Hyperdynamic LV systolic function. LVEF > 75%.
No regional wall motion abnormalities.
RV is top normal in size with normal systolic function.
No significant valvular disease.
No evidence of pulmonary hypertension though right heart pressures could not be
determined.
No prior study available for comparison.
Total time spent today was 38 minutes for this encounter. Time includes reviewing laboratory test/imaging results, reviewing pertinent medical records, obtaining and reviewing medical history, performing an appropriate exam, ordering medications,
tests and procedures. Time also includes documentation of this encounter, coordinating patient care and communicating with other healthcare professionals. Total time does not include separately billed tests performed on this date of service.
Subjective Data
-
Date of Service:
Date of Service: March 14, 2024
Chief Complaint: Pulmonary Follow Up
Subjective:
Patient seen and evaluated today at bedside. She says she feels great. No shortness of breath, and she worked with physical therapy today and had no difficulty although she says she did not walk a long distance. She currently denies chest pain,
PATTERSON, abdominal pain, nausea, fevers or chills.
Review of Systems
General: Other (Negative unless mentioned above)
Objective Data
Data Reviewed
Vital Signs / I&O / Oxygen:
Vital Signs
Temp Pulse Resp BP Pulse Ox
97.8 F 73 19 132/71 96
03/14/24 08:00 03/14/24 08:00 03/14/24 08:00 03/14/24 08:00 03/14/24 08:00
Intake and Output
03/13/24 03/14/24 03/15/24
06:59 06:59 06:59
Intake Total 1870 / 1870 1330 / 1330
Output Total 1300 / 1300
Balance 1870 / 1870 30 / 30
SaO2 96
Nasal Cannula flow liters per 3
minute
Physical Exam
General: Respiratory Distress (negative), Comfortable, Chills (negative) and Sweats (negative)
HEENT: Normocephalic and Anicteric
Cardiovascular: S1-S2, Murmur (negative) and Peripheral Edema (negative)
Respiratory: Wheeze (negative), Crackles (Bibasilar), Rhonchi (negative) and Non-Labored Respirations
GI: Soft, Non Distended, Non Tender and Normal Bowel Sounds
Neurology: Awake, Alert and Tremors (negative)
Skin: Warm, Dry, Cyanosis (negative) and Jaundice (negative)
Labs/Micro/Reports
Lab Data
03/14/24 05:31
03/14/24 05:31
Microbiology
03/12/24 08:14 Feces/Stool - Final
Negative for Norovirus GI and GII.
03/12/24 08:14 Feces/Stool Salmonella/Shigella Culture - Preliminary
Culture in Progress
03/12/24 08:14 Feces/Stool Campylobacter Culture - Preliminary
Culture in Progress
03/12/24 08:14 Feces/Stool C. difficile GDH Antigen & Toxins - Final
C. difficile antigen positive, toxin negative.
Clostridium difficile present, but toxin not detected.
Patient may be a carrier, colonized with nontoxinogenic
strain or the level of toxin in sample is below detection
limits. This information should be used in conjunction with
the patient's clinical history.
03/12/24 13:52 Nasal Swab Influenza Types A & B (LE[facility]) - Final
Negative for Influenza A & B, NAAT
Negative results must be combined with clinical observations
and patient history.
Nucleic Acid Amplification test (NAAT)performed on the
[employer] platform.
--- NOTE | 2024-03-14 11:18 | W.PN.HOSP.TC ---
Today's Communication/Plan
-
see A/P
Assessment / Plan
Assessment / Plan
Impression:
Presentation with exertional dyspnea
Acute hypoxic respiratory insufficiency with pulse ox of 88% on room air.
Bilateral diffuse interstitial pulmonary infiltrates.
Diarrheal illness with hematochezia
Other conditions:
CAD with prior history of stent.
Essential hypertension
Osteoarthritis
Spinal stenosis.
History of a left hip fracture with ORIF 2022.
Plan:
Acute hypoxic respiratory insufficiency.
Bilateral pulmonary infiltrates.
Exertional dyspnea for at least 2 weeks with nonproductive cough
Denies any fever, chest pain.
Differential diagnosis: Atypical pneumonia, versus interstitial pneumonitis, versus pulmonary edema cardiac/noncardiac, reasonable concern for thromboembolic disease/PE given sedentary lifestyle.
Serology for interstitial lung disease ordered.
BNP 2900. s/p IV Lasix 20 mg x1 dose on 03/12
Echo unrevealing: LVEF > 75%. No regional wall motion abnormalities. No significant valvular disease. No evidence of pulmonary hypertension
CT PE:
1. No evidence of pulmonary embolism or thoracic aortic dissection.
2. Scattered foci of reticular interstitial thickening, groundglass opacity, and bronchiectasis bilaterally. Differential diagnosis includes acute interstitial pneumonitis and chronic interstitial fibrosis. No definite lobar pneumonia, pleural
effusion, or pneumothorax.
3. Large hiatal hernia, containing the majority of the stomach.
Influenza and COVID serology are negative.
Pulmonology consulted
Continue current coverage for community-acquired pathogens including ceftriaxone and Zithromax 5 days total. Although procal noted negative
Continue corticosteroids, currently on Decadron 4 mg Q8H
Continue O2 supplementation to keep pulse ox above 92%. Weaned O2 as tolerated, currently on 2-3L NC
Diarrheal illness with hematochezia.
Denies any abdominal pain.
Benign abdominal examination.
C. difficile antigen positive, toxin negative- since pt was symptomatic with watery diarrhea, empirically treat with PO vancomycin for 10 days total.
Norovirus negative,
Follow stool culture
Hemoglobin was at 12.6 on admission, today at 9.7, cont to monitor Hgb closely
Hold aspirin with hematochezia (GIB appear to have resolved)
CAD with history of stent
Continue metoprolol and atorvastatin.
Resume aspirin if no hematochezia.
Hypertension.
Continue valsartan
Osteoarthritis baseline hold nabumetone acutely.
DVT ppx: SCD
FC
Dispo: PT OT eval
DW RN
DW daughter at bedside 03/13
Anticipated Discharge: > 48 hours
Subjective/Interval History
-
Date of Service: March 14, 2024
Objective Data
-
Labs:
Laboratory Results
03/14/24
05:31
WBC 15.9 H
Hgb 9.7 L
Hct 28.8 L
Plt Count 231
Sodium 138
Potassium 5.1
Chloride 105
Carbon Dioxide 24
BUN 35 H
Creatinine 0.9
Glucose 142 H
Calcium 8.9
Vital Signs:
Vital Signs
Temp Pulse Resp BP Pulse Ox
36.6 C 73 19 132/71 96
03/14/24 08:00 03/14/24 08:00 03/14/24 08:00 03/14/24 08:00 03/14/24 08:00
I&O
03/13/24 03/14/24 03/15/24
06:59 06:59 06:59
Intake Total 1869 1330 / 1330
Output Total 1300 / 1300
Balance 1869 30 30
Review of Systems
-
Respiratory: Reports Trouble Breathing
Abdomen/GI: Denies Diarrhea (resolved ) or Bloody Stools (resolved )
Physical Exam
-
General: Well Developed, Comfortable, Respiratory Distress and Conversant
HEENT: Normocephalic, Atraumatic, Moist Mucous Membranes and Oxygen (2L NC)
Respiratory: Crackles (BL bases) and Non Labored Respirations; Negative Accessory Resp Muscle Use
Cardiac: Regular Rhythm and S1/S2; Negative Murmur, Rub or Gallop
GI: Soft, Nontender, Nondistended and Normal Bowel Sounds; Negative Organomegaly
Rectal: Deferred by Provider
Musculoskeletal: No Clubbing, No Cyanosis and No Edema
Skin: Negative Rash
Neuro: Awake
Psych: Calm and Intact Judgement/Insight
Data Reviewed
-
CT Scan: Report Reviewed by me
Labs: Labs Reviewed by me
[2024-03-14 11:45] VITALS: BP 126/61; PULSE 78; O2SAT 98
[2024-03-14 15:47] VITALS: BP 111/66; BP 175/76; PULSE 101; PULSE 93; O2SAT 95
[2024-03-14 16:45] VITALS: BP 127/62
[2024-03-14] MEDS: TYLENOL 1000 MG PO (19:56)
[2024-03-14] MEDS: LIPITOR 10 MG PO (21:30)
[2024-03-14] MEDS: ROCEPHIN 1000 MG IV (21:30)
[2024-03-14] MEDS: TOPROL XL 12.5 MG PO (21:31)
[2024-03-14] MEDS: STERILE WATER FOR INJECTION 10 ML IV (21:31)
[2024-03-14] MEDS: ZITHROMAX INFUSION 250 IV (21:31)
[2024-03-14 23:27] VITALS: BP 112/67
[2024-03-14 23:32] LABS: ANA, IgG Reflex to HEp-2 Detected (None Detected)
[2024-03-14 23:49] LABS: ds-DNA Ab, IgG Reflex To Titer 7 IU (0-24)
[2024-03-15] MEDS: DECADRON 4 MG IV ×2 (00:17→08:39)
[2024-03-15 07:31] LABS: Hematocrit 30.6 % (37.0-47.0); Hemoglobin 10.2 g/dL (12.0-16.0); Mean Corp Hgb Conc. 33.3 g/dL (33.0-37.0); Mean Corpuscular Hgb 34.2 pg (27.0-31.0); Mean Corpuscular Volume 102.7 fL (81.0-99.0); Mean Platelet Volume 10.3 fL (7.4-10.4); Platelet Count 241 10^3/uL (130-400); Red Blood Cell Count 2.98 10^6/uL (4.20-5.40); Red Cell Dist. Width 13.1 % (11.5-14.5); White Blood Cell Count 10.6 10^3/uL (4.8-10.8)
[2024-03-15] MEDS: XOPENEX 0.63 MG INHALANT SOLUTION INH ×3 (07:37→19:14)
[2024-03-15 07:40] VITALS: BP 125/68
[2024-03-15 07:59] LABS: Blood Urea Nitrogen 30 mg/dl (7-17); Calcium 8.8 mg/dl (8.4-10.2); Carbon Dioxide 25 mmol/L (22-30); Chloride 104 mmol/L (98-107); Estimated Creatinine Clearance 46 ml/min; Glucose 126 mg/dl (70-99); Potassium 4.6 mmol/L (3.5-5.1); Sodium 139 mmol/L (135-145); eGFR > 60.00
[2024-03-15 08:04] LABS: C-Reactive Protein < 5.00 mg/L (0.0-10.00)
[2024-03-15] MEDS: DIOVAN 40 MG PO (08:37)
[2024-03-15] MEDS: TYLENOL 1000 MG PO ×2 (08:39→19:52)
[2024-03-15 08:50] LABS: IgE 12 kU/L (<=214)
--- NOTE | 2024-03-15 09:17 | W.PN.PUL3 ---
Today's Communication / Plan
-
Maintained on low supplemental o2, Home O2 eval
Would consider adding diuresis given elevated proBNP
Observe off abx for respiratory infection, PO vanc noted for C diff
Transition IV steroids to PO course, taper at discharge
Encouraged OOB, PT/OT
Discharge planning per team, hopefully in next 24 hours
OP Pulm FU arrangements
Assessment
-
78-year-old female with a past medical history of CAD s/p stent with history of SD, vitamin D deficiency, lumbar radiculitis with arthritis who presents with worsening SOB associated with dry cough. She currently resides at a assisted living with
her dog. She saw her PCP prior to arrival with outpatient XR done at [facility] showing bilateral pneumonia and was told to come to the ER. She has no fevers or chills or recent sick contacts. She was tested for COVID-19 + flu and was negative
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 She does report having diarrhea for the past few days and has also noticed bright red blood in her stool. No history of hemorrhoids or rectal pain, abdominal pain, nausea or vomiting. In the ER she was afebrile to 98.8 �F, pulse rate 103,
breathing at 20 breaths/min, BP 157/98 and saturating 88% on room air. Saturations improved to 95% with 2 L/min. Initial labs showed Hb 12.6, WBC 9.4, BUN 26, and proBNP 2930. CXR collected showing severe interstitial lung disease with mixed
diffuse groundglass opacities suggestive of inflammatory interstitial pneumonitis possibly with pulmonary edema. She was admitted to telemetry under the hospitalist for interstitial pneumonitis, started on antibiotics, given a dose of Lasix on
03/12, and CTA chest performed on 03/12/2024 was negative for an acute PE and showed scattered foci of reticular interstitial thickening with groundglass opacities and bronchiectasis. Also a large hiatal hernia. Due to abnormal CT findings,
pulmonary service now consulted for additional management/recommendations.
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
Impression:
#Acute respiratory failure with hypoxia on supplemental oxygen suspected to be from ILD-exacerbation (differential includes NSIP vs chronic HP vs asbestosis; unlikely UIP); MF-PNA vs ADHF on DDx
#Large hiatal hernia
#Bright red blood per rectum - resolved
#CAD with history of SD s/p stent
#Osteoarthritis
#Lumbar radiculitis
Plan
Currently on 2.5L O2
Not known to be on home O2 use
Can repeat home O2 needs at discharge
Her CTA chest shows mosaic attenuation with subpleural reticular opacities with areas of traction bronchiectasis and a large hiatal hernia which is causing atelectasis to the adjacent lung parenchyma
I have no prior imaging to assess the chronicity of this however this is not a classic UIP pattern; she does have some foci of intercostal calcification as well as along her medial right sided pleura, hence this does bring up possibility of
asbestosis
Continue with systemic steroids and wean as clinically tolerated - transition to PO prednisone today
Maintain euglycemia while on high dose steroids with goal BG >100 and <180mg/dL
CTD workup is pending including HEBER screen, Yumiko 1 antibody, SSA/SSB, scleroderma panel, anti-� dsDNA AB, HP panel, RF factor, JULIANNA level and aldolase
I added centromere Ab and anti-CCP Ab, and CRP; ESR is low at 20--this can be followed as OP
She is on antibiotics however the CTA chest does not appear like an infectious etiology is the cause, ambrose with a procal of <0.05 x2
Would stop abx and observe off
Maintain SpO2 >90-94% with supplemental O2 and titrate down as tolerated
Check ambulatory pulse ox prior to discharge
Continue xopenex TID
Consider diuresis
Elevated proBNP at 2930 (unknown baseline)
Reviewed echo on 03/12/2024 showed an underfilled LV with hyperdynamic LVEF at >75% with no regional WMA and RV was top normal in size with normal systolic function; no evidence of PH though right sided heart pressures could not be determined
Considering she had rectal bleeding prior to arrival, monitor for recurrence
Transfuse blood products if needed to keep Hb>7, plt>50k
Given her diarrhea, follow up stool Cx
C diff Ag was positive but toxin is negative --> started on PO vanc
Incentive spirometer encouraged
Replete electrolytes with K>4, Mg>2
prn nebulized bronchodilators - not currently bronchospastic
DVT ppx: SCDs for now; If HB remains stable for 48-72 hrs with no signs of bleeding then would start chemical ppx
Pulmonary service will continue to follow along.
I will arrange for outpatient office follow up for radiographic surveillance of her abnormal CT chest findings.
Data:
CTA Chest 03/12/2024: 1. No evidence of pulmonary embolism or thoracic aortic dissection.
2. Scattered foci of reticular interstitial thickening, groundglass opacity, and bronchiectasis bilaterally. Differential diagnosis includes acute interstitial pneumonitis and chronic interstitial fibrosis. No definite lobar pneumonia, pleural
effusion, or pneumothorax.
3. Large hiatal hernia, containing the majority of the stomach.
CXR 03/11/24- 1. Severe interstitial disease throughout both lungs mixed with mild diffuse ground-glass opacity most suggestive of a SEVERE INFLAMMATORY INTERSTITIAL PNEUMONITIS. Acute interstitial and alveolar cardiogenic pulmonary edema is
considered less likely.
2. Mild cardiomegaly.
3. Severe multilevel thoracolumbar discogenic degenerative disease.
4. Moderate to severe left convex curvature of the upper lumbar spine, moderately exaggerated thoracic kyphosis, and spinal stimulator wires in the midthoracic spinal canal.
5. Diffuse bone demineralization.
TTE 03/12/2024: Left ventricle is underfilled. Hyperdynamic LV systolic function. LVEF > 75%. No regional wall motion abnormalities. RV is top normal in size with normal systolic function.
No significant valvular disease. No evidence of pulmonary hypertension though right heart pressures could not be determined. No prior study available for comparison.
-----
Total time spent today was 50 minutes for this encounter. Time includes reviewing laboratory test/imaging results, reviewing pertinent medical records, obtaining and reviewing medical history, performing an appropriate exam, ordering medications,
tests and procedures. Time also includes documentation of this encounter, coordinating patient care and communicating with other healthcare professionals. Total time does not include separately billed tests performed on this date of service.
Subjective Data
-
Date of Service:
Date of Service: March 15, 2024
Chief Complaint: Pulmonary Follow Up
Subjective:
No acute events ON, remains on 2-3L NC
No complaints, feels her SOB is stable
Objective Data
Data Reviewed
Vital Signs / I&O / Oxygen:
Vital Signs
Temp Pulse Resp BP Pulse Ox
97.8 F 93 18 125/68 98
03/15/24 07:40 03/15/24 08:37 03/15/24 07:40 03/15/24 08:37 03/15/24 07:40
Intake and Output
03/14/24 03/15/24 03/16/24
06:59 06:59 06:59
Intake Total 1330 / 1330 960 / 960
Output Total 1300 / 1300 1150 / 1150
Balance 30 / 30 -190 / -190
SaO2 98
Nasal Cannula flow liters per 7
minute
Physical Exam
General: Respiratory Distress (negative), Comfortable, Chills (negative), Sweats (negative) and Good Appetite
HEENT: Normocephalic and Anicteric
Cardiovascular: S1-S2, Murmur (negative) and Peripheral Edema (negative)
Respiratory: Clear, Wheeze (negative), Rhonchi (negative) and Non-Labored Respirations
GI: Soft, Non Distended, Non Tender and Normal Bowel Sounds
Neurology: Awake, Alert, Oriented, No Motor Deficits and Tremors (negative)
Skin: Warm, Dry, Cyanosis (negative) and Jaundice (negative)
Labs/Micro/Reports
Lab Data
03/15/24 06:54
03/15/24 06:54
Microbiology
03/12/24 08:14 Feces/Stool Salmonella/Shigella Culture - Final
No Salmonella, Shigella, Aeromonas or Plesiomonas species
isolated.
03/12/24 08:14 Feces/Stool Campylobacter Culture - Final
No Campylobacter species isolated.
03/12/24 08:14 Feces/Stool - Final
Negative for Norovirus GI and GII.
03/12/24 08:14 Feces/Stool C. difficile GDH Antigen & Toxins - Final
C. difficile antigen positive, toxin negative.
Clostridium difficile present, but toxin not detected.
Patient may be a carrier, colonized with nontoxinogenic
strain or the level of toxin in sample is below detection
limits. This information should be used in conjunction with
the patient's clinical history.
03/12/24 13:52 Nasal Swab Influenza Types A & B ([facility]) - Final
Negative for Influenza A & B, NAAT
Negative results must be combined with clinical observations
and patient history.
Nucleic Acid Amplification test (NAAT)performed on the
[employer] platform.
[2024-03-15 11:08] VITALS: PULSE 87; O2SAT 95
[2024-03-15 12:01] LABS: ANA, HEp-2, IgG Detected (<1:80)
[2024-03-15 12:47] LABS: Jo-1 Antibodies 4 AU/mL (0-40); SSA 52 (Ro)(ENA) Ab, IgG 1 AU/mL (0-40); SSA 60 (Ro)(ENA) Ab, IgG 0 AU/mL (0-40); SSB (La)(ENA) Ab, IgG 0 AU/mL (0-40); Scleroderma Antibody (Scl-70) 8 AU/mL (0-40)
--- NOTE | 2024-03-15 13:08 | PTCARENOTE ---
pt is av paced on the monitor, hr in the 80s, vss. pt offers no complaints at this time. pt educated on plan of care for the day and pt verbalized understanding. pt worked w/ pt/ot and tolerated well. call cole within reach.
[2024-03-15] MEDS: LASIX 40 MG IV (13:34)
[2024-03-15 13:56] LABS: Aldolase 2.4 U/L (1.2-7.6); Angiotensin-1-converting Enzym <10 U/L (16-85)
--- NOTE | 2024-03-15 14:07 | CM ---
CM met with pt bedside
She notes dc is anticipated tomorrow
Continues with oxygen weaning
Therapy following with VN recs
Pt is hopeful to return home with outpt PT/OT through [facility]
If O2 is needed on dc, in agreement with VN through [facility] for home O2 support
Update to Kianna/[facility] [phone]
Kianna is requesting copy of outpt scripts to be faxed to her to submit to therapy team (fax- [phone])
Discharge Disposition- home with outpt therapy [facility] vs home with [facility] VN and home O2
[2024-03-15 15:40] VITALS: BP 123/65
--- NOTE | 2024-03-15 16:20 | W.PN.HOSP.TC ---
Today's Communication/Plan
-
Transition to oral prednisone
Observe off antibiotics
Additional diuresis IV Lasix will be provided 40 mg today.
Attempt to wean off oxygen
Home O2 evaluation in a.m.
Continue oral vancomycin
Assessment / Plan
Assessment / Plan
Impression:
Presentation with exertional dyspnea
Acute hypoxic respiratory insufficiency with pulse ox of 88% on room air.
Bilateral diffuse interstitial pulmonary infiltrates.
Diarrheal illness with hematochezia
Other conditions:
CAD with prior history of stent.
Essential hypertension
Osteoarthritis
Spinal stenosis.
History of a left hip fracture with ORIF 2022.
Plan:
Acute hypoxic respiratory insufficiency.
Bilateral pulmonary infiltrates.
Exertional dyspnea for at least 2 weeks with nonproductive cough
Denies any fever, chest pain.
Differential diagnosis: Atypical pneumonia, versus interstitial pneumonitis, versus pulmonary edema cardiac/noncardiac, reasonable concern for thromboembolic disease/PE given sedentary lifestyle.
Serology for interstitial lung disease ordered.
BNP 2900. s/p IV Lasix 20 mg x1 dose on 03/12
Echo unrevealing: LVEF > 75%. No regional wall motion abnormalities. No significant valvular disease. No evidence of pulmonary hypertension
CT PE:
1. No evidence of pulmonary embolism or thoracic aortic dissection.
2. Scattered foci of reticular interstitial thickening, groundglass opacity, and bronchiectasis bilaterally. Differential diagnosis includes acute interstitial pneumonitis and chronic interstitial fibrosis. No definite lobar pneumonia, pleural
effusion, or pneumothorax.
3. Large hiatal hernia, containing the majority of the stomach.
Influenza and COVID serology are negative.
Pulmonology consulted
Continue current coverage for community-acquired pathogens including ceftriaxone and Zithromax 5 days total. Although procal noted negative
Transition to prednisone on 03/15
Continue O2 supplementation to keep pulse ox above 92%. Weaned O2 as tolerated, currently on 2-3L NC
Diarrheal illness with hematochezia.
Denies any abdominal pain.
Benign abdominal examination.
C. difficile antigen positive, toxin negative- since pt was symptomatic with watery diarrhea, empirically treat with PO vancomycin for 10 days total.
Norovirus negative,
Follow stool culture
Hemoglobin was at 12.6 on admission, today at 9.7, cont to monitor Hgb closely
Hold aspirin with hematochezia (GIB appear to have resolved)
CAD with history of stent
Continue metoprolol and atorvastatin.
Resume aspirin if no hematochezia.
Hypertension.
Continue valsartan
Osteoarthritis baseline hold nabumetone acutely.
DVT ppx: SCD
FC
Dispo: PT OT eval
DW RN
DW daughter at bedside 03/13
Anticipated Discharge: 24 - 48 hours
Subjective/Interval History
-
Date of Service: March 15, 2024
Objective Data
-
Labs:
Laboratory Results
03/15/24
06:54
WBC 10.6
Hgb 10.2 L
Hct 30.6 L
Plt Count 241
Sodium 139
Potassium 4.6
Chloride 104
Carbon Dioxide 25
BUN 30 H
Creatinine 0.7
Glucose 126 H
Calcium 8.8
Vital Signs:
Vital Signs
Temp Pulse Resp BP Pulse Ox
98.0 F 87 16 123/65 95
03/15/24 15:40 03/15/24 15:40 03/15/24 15:40 03/15/24 15:40 03/15/24 15:40
I&O
03/14/24 03/15/24 03/16/24
06:59 06:59 06:59
Intake Total 1330 / 1330 960 / 960 480 / 480
Output Total 1300 / 1300 1150 / 1150
Balance 30 / 30 -190 / -190 480 / 480
Physical Exam
-
General: Well Developed, Comfortable, Respiratory Distress and Conversant
HEENT: Normocephalic, Atraumatic, Moist Mucous Membranes and Oxygen (2L NC)
Respiratory: Crackles (BL bases) and Non Labored Respirations; Negative Accessory Resp Muscle Use
Cardiac: Regular Rhythm and S1/S2; Negative Murmur, Rub or Gallop
GI: Soft, Nontender, Nondistended and Normal Bowel Sounds; Negative Organomegaly
Rectal: Deferred by Provider
Musculoskeletal: No Clubbing, No Cyanosis and No Edema
Skin: Negative Rash
Neuro: Awake
Psych: Calm and Intact Judgement/Insight
--- NOTE | 2024-03-15 17:21 | PTCARENOTE ---
pt has been ambulating throughout the day today. pulse ox on 3LO2 is 93%. pt offers no complaints at this time. pt educated on plan of care and pt verbalized understanding. call cole within reach.
[2024-03-15] MEDS: FIRVANQ 125 MG PO ×2 (17:35→22:22)
[2024-03-15 17:46] LABS: Rheumatoid Agglutinin Less Than 10 IU (<10 IU)
[2024-03-15] MEDS: TOPROL XL 12.5 MG PO (22:21)
[2024-03-15] MEDS: LIPITOR 10 MG PO (22:21)
[2024-03-15 23:01] VITALS: BP 119/64
[2024-03-16 06:00] VITALS: BMI 20.4
[2024-03-16 06:39] LABS: ANA Pattern Homogeneous
[2024-03-16 06:45] LABS: % Basophils 0.2 % (0-2); % Eosinophils 0.2 % (0-6); % Immature Granulocytes 0.8 % (0-0.5); % Lymphocytes 16.5 % (20.5-51.1); % Monocytes 7.6 % (1.7-9.3); % Neutrophils 74.7 % (42.2-75.2); Absolute Immature Granulocytes 0.1 10^3/uL (0-0.05); Absolute Monocytes 0.9 10^3/uL (0.1-0.6); Hematocrit 34.8 % (37.0-47.0); Hemoglobin 11.5 g/dL (12.0-16.0); Mean Corpuscular Hgb 33.3 pg (27.0-31.0); Mean Corpuscular Volume 100.9 fL (81.0-99.0); Nucleated Red Blood Cells % 0 %; Platelet Count 292 10^3/uL (130-400); Red Blood Cell Count 3.45 10^6/uL (4.20-5.40); White Blood Cell Count 12.1 10^3/uL (4.8-10.8)
[2024-03-16 06:53] LABS: NT-proBNP 548 pg/ml
[2024-03-16 07:01] LABS: Blood Urea Nitrogen 36 mg/dl (7-17); Calcium 8.9 mg/dl (8.4-10.2); Carbon Dioxide 30 mmol/L (22-30); Chloride 97 mmol/L (98-107); Estimated Creatinine Clearance 40 ml/min; Glucose 95 mg/dl (70-99); Potassium 4.3 mmol/L (3.5-5.1); Sodium 139 mmol/L (135-145); eGFR > 60.00
[2024-03-16] MEDS: XOPENEX 0.63 MG INHALANT SOLUTION INH ×3 (07:13→19:43)
[2024-03-16 07:41] VITALS: BP 138/63
[2024-03-16] MEDS: DELTASONE 50 MG PO (07:42)
[2024-03-16] MEDS: FIRVANQ 125 MG PO ×3 (07:43→21:07)
[2024-03-16] MEDS: TYLENOL 1000 MG PO ×2 (07:43→21:07)
[2024-03-16] MEDS: DIOVAN 40 MG PO (07:43)
--- NOTE | 2024-03-16 09:15 | W.PN.PUL3 ---
Today's Communication / Plan
-
Currently 99% on 2L, home O2 eval, likely can be discontinued
Prednisone taper
Encouraged OOB/Ambulation
Patient wants to go home, hopeful discharge planning per team
OP FU recommended
Assessment
-
78-year-old female with a past medical history of CAD s/p stent with history of MA, vitamin D deficiency, lumbar radiculitis with arthritis who presents with worsening SOB associated with dry cough. She currently resides at a assisted living with
her dog. She saw her PCP prior to arrival with outpatient XR done at [facility] showing bilateral pneumonia and was told to come to the ER. She has no fevers or chills or recent sick contacts. She was tested for COVID-19 + flu and was negative
[employer]. She does report having diarrhea for the past few days and has also noticed bright red blood in her stool. No history of hemorrhoids or rectal pain, abdominal pain, nausea or vomiting. In the ER she was afebrile to 98.8 �F, pulse rate 103,
breathing at 20 breaths/min, BP 157/98 and saturating 88% on room air. Saturations improved to 95% with 2 L/min. Initial labs showed Hb 12.6, WBC 9.4, BUN 26, and proBNP 2930. CXR collected showing severe interstitial lung disease with mixed
diffuse groundglass opacities suggestive of inflammatory interstitial pneumonitis possibly with pulmonary edema. She was admitted to telemetry under the hospitalist for interstitial pneumonitis, started on antibiotics, given a dose of Lasix on
03/12, and CTA chest performed on 03/12/2024 was negative for an acute PE and showed scattered foci of reticular interstitial thickening with groundglass opacities and bronchiectasis. Also a large hiatal hernia. Due to abnormal CT findings,
pulmonary service now consulted for additional management/recommendations.
Chronic conditions [employer]: Lumbar radiculitis, CAD with history of MA s/p stent, vitamin D deficiency, arthritis, cataracts
Impression:
#Acute respiratory failure with hypoxia on supplemental oxygen suspected to be from ILD-exacerbation (differential includes NSIP vs chronic HP vs asbestosis; unlikely UIP); MF-PNA vs ADHF on DDx
#Large hiatal hernia
#Bright red blood per rectum - resolved
#CAD with history of MA s/p stent
#Osteoarthritis
#Lumbar radiculitis
Plan
Currently 99% on 2L O2
Not known to be on home O2 use
Can repeat home O2 needs at discharge, likely can be weaned to off
Her CTA chest shows mosaic attenuation with subpleural reticular opacities with areas of traction bronchiectasis and a large hiatal hernia which is causing atelectasis to the adjacent lung parenchyma
I have no prior imaging to assess the chronicity of this however this is not a classic UIP pattern; she does have some foci of intercostal calcification as well as along her medial right sided pleura, hence this does bring up possibility of
asbestosis
Continue with systemic steroids and wean as clinically tolerated - transition to PO prednisone today
Maintain euglycemia while on high dose steroids with goal BG >100 and <180mg/dL
CTD workup is pending including HEBER screen, Yumiko 1 antibody, SSA/SSB, scleroderma panel, anti-� dsDNA AB, HP panel, RF factor, JULIANNA level and aldolase
I added centromere Ab and anti-CCP Ab, and CRP; ESR is low at 20--this can be followed as OP
She is on antibiotics however the CTA chest does not appear like an infectious etiology is the cause, amrbose with a procal of <0.05 x2
Would stop abx and observe off
Maintain SpO2 >90-94% with supplemental O2 and titrate down as tolerated
Check ambulatory pulse ox prior to discharge
Continue xopenex TID
Consider diuresis
Elevated proBNP at 2930 (unknown baseline)
Reviewed echo on 03/12/2024 showed an underfilled LV with hyperdynamic LVEF at >75% with no regional WMA and RV was top normal in size with normal systolic function; no evidence of PH though right sided heart pressures could not be determined
Considering she had rectal bleeding prior to arrival, monitor for recurrence
Transfuse blood products if needed to keep Hb>7, plt>50k
Given her diarrhea, follow up stool Cx
C diff Ag was positive but toxin is negative --> started on PO vanc
Incentive spirometer encouraged
Replete electrolytes with K>4, Mg>2
prn nebulized bronchodilators - not currently bronchospastic
DVT ppx: SCDs for now; If HB remains stable for 48-72 hrs with no signs of bleeding then would start chemical ppx
Pulmonary service will continue to follow along.
I will arrange for outpatient office follow up for radiographic surveillance of her abnormal CT chest findings.
Data:
CTA Chest 03/12/2024: 1. No evidence of pulmonary embolism or thoracic aortic dissection.
2. Scattered foci of reticular interstitial thickening, groundglass opacity, and bronchiectasis bilaterally. Differential diagnosis includes acute interstitial pneumonitis and chronic interstitial fibrosis. No definite lobar pneumonia, pleural
effusion, or pneumothorax.
3. Large hiatal hernia, containing the majority of the stomach.
CXR 03/11/24- 1. Severe interstitial disease throughout both lungs mixed with mild diffuse ground-glass opacity most suggestive of a SEVERE INFLAMMATORY INTERSTITIAL PNEUMONITIS. Acute interstitial and alveolar cardiogenic pulmonary edema is
considered less likely.
2. Mild cardiomegaly.
3. Severe multilevel thoracolumbar discogenic degenerative disease.
4. Moderate to severe left convex curvature of the upper lumbar spine, moderately exaggerated thoracic kyphosis, and spinal stimulator wires in the midthoracic spinal canal.
5. Diffuse bone demineralization.
TTE 03/12/2024: Left ventricle is underfilled. Hyperdynamic LV systolic function. LVEF > 75%. No regional wall motion abnormalities. RV is top normal in size with normal systolic function.
No significant valvular disease. No evidence of pulmonary hypertension though right heart pressures could not be determined. No prior study available for comparison.
-----
Total time spent today was 35 minutes for this encounter. Time includes reviewing laboratory test/imaging results, reviewing pertinent medical records, obtaining and reviewing medical history, performing an appropriate exam, ordering medications,
tests and procedures. Time also includes documentation of this encounter, coordinating patient care and communicating with other healthcare professionals. Total time does not include separately billed tests performed on this date of service.
Subjective Data
-
Date of Service:
Date of Service: March 16, 2024
Chief Complaint: Pulmonary Follow Up
Subjective:
No new events ON, remains on low O2
No further worsening SOB
wants to go home
Objective Data
Data Reviewed
Vital Signs / I&O / Oxygen:
Vital Signs
Temp Pulse Resp BP Pulse Ox
97.7 F 80 18 138/63 96
03/16/24 07:41 03/16/24 07:41 03/16/24 07:41 03/16/24 07:43 03/16/24 07:41
Intake and Output
03/15/24 03/16/24 03/17/24
06:59 06:59 06:59
Intake Total 960 / 960 1320 / 1320
Output Total 1150 / 1150 750 / 750
Balance -190 / -190 570 / 570
SaO2 96
Nasal Cannula flow liters per 2
minute
Physical Exam
General: Respiratory Distress (negative), Comfortable, Chills (negative), Sweats (negative) and Good Appetite
HEENT: Normocephalic and Anicteric
Cardiovascular: S1-S2, Murmur (negative) and Peripheral Edema (negative)
Respiratory: Clear, Wheeze (negative), Rhonchi (negative) and Non-Labored Respirations
GI: Soft, Non Distended, Non Tender and Normal Bowel Sounds
Neurology: Awake, Alert, Oriented, No Motor Deficits and Tremors (negative)
Skin: Warm, Dry, Cyanosis (negative) and Jaundice (negative)
Labs/Micro/Reports
Lab Data
03/16/24 06:16
03/16/24 06:16
Microbiology
03/12/24 08:14 Feces/Stool Salmonella/Shigella Culture - Final
No Salmonella, Shigella, Aeromonas or Plesiomonas species
isolated.
03/12/24 08:14 Feces/Stool Campylobacter Culture - Final
No Campylobacter species isolated.
03/12/24 08:14 Feces/Stool Shiga Toxin Test - Final
No E. coli Shiga Toxin 1 or 2 detected.
03/12/24 08:14 Feces/Stool - Final
Negative for Norovirus GI and GII.
--- NOTE | 2024-03-16 09:57 | PN.CDI ---
CDI
- -
CDI:
Physician Documentation Request
Admit Date: 03/11/24 23:25
Dear Doctor Delvin,
Patient admitted for hypoxia.
03/12 PCN: 'Lung sounds are coarse, saO2 94-96% 4L NC. Shallow breathing and productive cough'
03/15 Pulmonary PN: 'Acute respiratory failure with hypoxia on supplemental oxygen suspected to be from ILD-exacerbation'
03/15 Hospitalist PN: 'Presentation with exertional dyspnea, Acute hypoxic respiratory insufficiency with pulse ox of 88% on room air. Bilateral diffuse interstitial pulmonary infiltrates.'
Selected Entries
03/11/24
20:47 03/11/24
22:45
SaO2 88 86
03/12/24
00:28 03/12/24
03:16 03/14/24
03:13
Nasal Cannula flow liters per minute 4 4 3
Clarify which of the following accurately represents the patient's respiratory status:
Acute hypoxic respiratory failure
Acute hypoxic respiratory insufficiency
Other
Additional information for Respiratory Failure:
Recognized criteria for Respiratory Failure (Source: [facility] Feb 2013)
ABGs: (1 or more) Symptoms Please indicate type if known
1. p)2 <60 or RA SPO2 <91% on RA 1. Tachypnea, SOB, dyspnea Hypoxic
2. pCO2 50 and pH <7.35 2. Use of accessory muscles Hypercapnic
3. pO2 decrease of pCO2 increase by 3. Pallor or cyanosis Hypoxic and Hypercapnic
10 mmHg from baseline if known 4. Anxiety or restlessness Unable to determine
5. Unable to speak in full sentences
Supplemental O2 of > 40% (5LPM) Intubation is not required
Use of terms such as suspected, likely, concern for, or probable (associated with a specific diagnosis that is being evaluated, monitored, or treated as if it exists) are acceptable and can be coded in the inpatient setting, when documented at the
time of discharge.
Thank you,
Vivi Glass RN, BSN
CDI Specialist
Available via [place] text
Please use your independent medical judgment in providing your response.
[2024-03-16 12:06] LABS: Glomerular Base Membrane Ab 0 AU/mL (0-19); Myeloperoxidase Antibody 0 AU/mL (0-19); Serine Protease-3, IgG 0 AU/mL (0-19)
[2024-03-16] MEDS: LASIX 40 MG IV (12:11)
[2024-03-16 15:57] VITALS: BP 115/60
--- NOTE | 2024-03-16 16:10 | CM ---
Reviewed the chart notes and spoke with the patient at the bedside. IMM reviewed. [employer] order form faxed for home O2. Referral sent to [employer] . CM continues to be available to patient/family and is monitoring medical plan for needs at
discharge.
Plan: Discharge to home with O2 via [employer] and [employer] [facility].
--- NOTE | 2024-03-16 17:00 | W.PN.HOSP.TC ---
Today's Communication/Plan
-
Set up home O2.
Transition to oral Lasix at 20 mg Friday started 03/25.
Prednisone taper.
Discharge planning
Follow-up with pulmonology and cardiology.
Assessment / Plan
Assessment / Plan
Impression:
Presentation with exertional dyspnea
Acute hypoxic respiratory insufficiency with pulse ox of 88% on room air.
Bilateral diffuse interstitial pulmonary infiltrates.
Diarrheal illness with hematochezia
Other conditions:
CAD with prior history of stent.
Essential hypertension
Osteoarthritis
Spinal stenosis.
History of a left hip fracture with ORIF 2022.
Plan:
Acute hypoxic respiratory insufficiency.
Bilateral pulmonary infiltrates.
Exertional dyspnea for at least 2 weeks with nonproductive cough
Denies any fever, chest pain.
Differential diagnosis: Atypical pneumonia, versus interstitial pneumonitis, versus pulmonary edema cardiac/noncardiac, reasonable concern for thromboembolic disease/PE given sedentary lifestyle.
Serology for interstitial lung disease. With positive HEBER.
Echo unrevealing: LVEF > 75%. No regional wall motion abnormalities. No significant valvular disease. No evidence of pulmonary hypertension
CT PE:
1. No evidence of pulmonary embolism or thoracic aortic dissection.
2. Scattered foci of reticular interstitial thickening, groundglass opacity, and bronchiectasis bilaterally. Differential diagnosis includes acute interstitial pneumonitis and chronic interstitial fibrosis. No definite lobar pneumonia, pleural
effusion, or pneumothorax.
3. Large hiatal hernia, containing the majority of the stomach.
Influenza and COVID serology are negative.
Pulmonology consulted
Continue current coverage for community-acquired pathogens including ceftriaxone and Zithromax 5 days total. Although procal noted negative
Transition to prednisone on 03/15
Responded well to diuresis Lasix 40 mg IV provided on 03/15, 03/16. Plan is to transition to oral Lasix 20 mg Friday
Home O2 assessment
Diarrheal illness with hematochezia.
Denies any abdominal pain.
Benign abdominal examination.
C. difficile antigen positive, toxin negative- since pt was symptomatic with watery diarrhea, empirically treat with PO vancomycin for 10 days total.
Norovirus negative,
Stool cultures negative to date
Stable hemoglobin
CAD with history of stent
Continue metoprolol and atorvastatin.
Resume aspirin if no hematochezia.
Hypertension.
Continue valsartan
Osteoarthritis baseline hold nabumetone acutely.
DVT ppx: SCD
FC
Dispo: PT OT eval
DW RN
DW daughter at bedside 03/13
Anticipated Discharge: 24 - 48 hours
Subjective/Interval History
-
Date of Service: March 16, 2024
Objective Data
-
Labs:
Laboratory Results
03/16/24
06:16
WBC 12.1 H
Hgb 11.5 L
Hct 34.8 L
Plt Count 292 D
Sodium 139
Potassium 4.3
Chloride 97 L
Carbon Dioxide 30
BUN 36 H
Creatinine 0.8
Glucose 95
Calcium 8.9
Vital Signs:
Vital Signs
Temp Pulse Resp BP Pulse Ox
98 F 86 18 115/60 97
03/16/24 15:57 03/16/24 15:57 03/16/24 15:57 03/16/24 15:57 03/16/24 15:57
I&O
03/15/24 03/16/24 03/17/24
06:59 06:59 06:59
Intake Total 960 / 960 1320 / 1320
Output Total 1150 / 1150 750 / 750
Balance -190 / -190 570 / 570
Physical Exam
-
General: Well Developed, Comfortable, Respiratory Distress and Conversant
HEENT: Normocephalic, Atraumatic, Moist Mucous Membranes and Oxygen (2L NC)
Respiratory: Crackles (BL bases) and Non Labored Respirations; Negative Accessory Resp Muscle Use
Cardiac: Regular Rhythm and S1/S2; Negative Murmur, Rub or Gallop
GI: Soft, Nontender, Nondistended and Normal Bowel Sounds; Negative Organomegaly
Rectal: Deferred by Provider
Musculoskeletal: No Clubbing, No Cyanosis and No Edema
Skin: Negative Rash
Neuro: Awake
Psych: Calm and Intact Judgement/Insight
[2024-03-16] MEDS: TOPROL XL 12.5 MG PO (21:07)
[2024-03-16] MEDS: LIPITOR 10 MG PO (21:07)
[2024-03-16 23:40] VITALS: BP 116/57
[2024-03-17 01:06] LABS: CCP Antibody IgG/IgA 5 Units (0-19)
[2024-03-17 05:35] VITALS: BMI 20.4
[2024-03-17 07:59] VITALS: BP 132/61
[2024-03-17] MEDS: DIOVAN 40 MG PO (08:56)
[2024-03-17] MEDS: TYLENOL 1000 MG PO (08:56)
[2024-03-17] MEDS: DELTASONE 50 MG PO (08:56)
[2024-03-17] MEDS: FIRVANQ 125 MG PO (08:58)
--- NOTE | 2024-03-17 09:29 | W.PN.PUL3 ---
Today's Communication / Plan
-
Prednisone taper
O2 eval: 87% on RA, 2L needed at rest, 3L needed for ambulation--awaiting home set up
Discharge planning today
OP FU recommended
We will sign off at this time, please call with questions
Assessment
-
78-year-old female with a past medical history of CAD s/p stent with history of CO, vitamin D deficiency, lumbar radiculitis with arthritis who presents with worsening SOB associated with dry cough. She currently resides at a assisted living with
her dog. She saw her PCP prior to arrival with outpatient XR done at [facility] showing bilateral pneumonia and was told to come to the ER. She has no fevers or chills or recent sick contacts. She was tested for COVID-19 + flu and was negative
[employer]. She does report having diarrhea for the past few days and has also noticed bright red blood in her stool. No history of hemorrhoids or rectal pain, abdominal pain, nausea or vomiting. In the ER she was afebrile to 98.8 �F, pulse rate 103,
breathing at 20 breaths/min, BP 157/98 and saturating 88% on room air. Saturations improved to 95% with 2 L/min. Initial labs showed Hb 12.6, WBC 9.4, BUN 26, and proBNP 2930. CXR collected showing severe interstitial lung disease with mixed
diffuse groundglass opacities suggestive of inflammatory interstitial pneumonitis possibly with pulmonary edema. She was admitted to telemetry under the hospitalist for interstitial pneumonitis, started on antibiotics, given a dose of Lasix on
03/12, and CTA chest performed on 03/12/2024 was negative for an acute PE and showed scattered foci of reticular interstitial thickening with groundglass opacities and bronchiectasis. Also a large hiatal hernia. Due to abnormal CT findings,
pulmonary service now consulted for additional management/recommendations.
Chronic conditions [employer]: Lumbar radiculitis, CAD with history of CO s/p stent, vitamin D deficiency, arthritis, cataracts
Impression:
#Acute respiratory failure with hypoxia on supplemental oxygen suspected to be from ILD-exacerbation (differential includes NSIP vs chronic HP vs asbestosis; unlikely UIP); MF-PNA vs ADHF on DDx
#Large hiatal hernia
#Bright red blood per rectum - resolved
#CAD with history of CO s/p stent
#Osteoarthritis
#Lumbar radiculitis
Plan
Currently 99% on 2L O2
Not known to be on home O2 use
Can repeat home O2 needs at discharge, likely can be weaned to off
Her CTA chest shows mosaic attenuation with subpleural reticular opacities with areas of traction bronchiectasis and a large hiatal hernia which is causing atelectasis to the adjacent lung parenchyma
I have no prior imaging to assess the chronicity of this however this is not a classic UIP pattern; she does have some foci of intercostal calcification as well as along her medial right sided pleura, hence this does bring up possibility of
asbestosis
Continue with systemic steroids and wean as clinically tolerated - transition to PO prednisone today
Maintain euglycemia while on high dose steroids with goal BG >100 and <180mg/dL
CTD workup is pending including HEBER screen, Yumiko 1 antibody, SSA/SSB, scleroderma panel, anti-� dsDNA AB, HP panel, RF factor, JULIANNA level and aldolase
I added centromere Ab and anti-CCP Ab, and CRP; ESR is low at 20--this can be followed as OP
She is on antibiotics however the CTA chest does not appear like an infectious etiology is the cause, ambrose with a procal of <0.05 x2
Would stop abx and observe off
Maintain SpO2 >90-94% with supplemental O2 and titrate down as tolerated
Check ambulatory pulse ox prior to discharge
Continue xopenex TID
Consider diuresis
Elevated proBNP at 2930 (unknown baseline)
Reviewed echo on 03/12/2024 showed an underfilled LV with hyperdynamic LVEF at >75% with no regional WMA and RV was top normal in size with normal systolic function; no evidence of PH though right sided heart pressures could not be determined
Considering she had rectal bleeding prior to arrival, monitor for recurrence
Transfuse blood products if needed to keep Hb>7, plt>50k
Given her diarrhea, follow up stool Cx
C diff Ag was positive but toxin is negative --> started on PO vanc
Incentive spirometer encouraged
Replete electrolytes with K>4, Mg>2
prn nebulized bronchodilators - not currently bronchospastic
DVT ppx: SCDs for now; If HB remains stable for 48-72 hrs with no signs of bleeding then would start chemical ppx
Pulmonary service will continue to follow along.
I will arrange for outpatient office follow up for radiographic surveillance of her abnormal CT chest findings.
Data:
CTA Chest 03/12/2024: 1. No evidence of pulmonary embolism or thoracic aortic dissection.
2. Scattered foci of reticular interstitial thickening, groundglass opacity, and bronchiectasis bilaterally. Differential diagnosis includes acute interstitial pneumonitis and chronic interstitial fibrosis. No definite lobar pneumonia, pleural
effusion, or pneumothorax.
3. Large hiatal hernia, containing the majority of the stomach.
CXR 03/11/24- 1. Severe interstitial disease throughout both lungs mixed with mild diffuse ground-glass opacity most suggestive of a SEVERE INFLAMMATORY INTERSTITIAL PNEUMONITIS. Acute interstitial and alveolar cardiogenic pulmonary edema is
considered less likely.
2. Mild cardiomegaly.
3. Severe multilevel thoracolumbar discogenic degenerative disease.
4. Moderate to severe left convex curvature of the upper lumbar spine, moderately exaggerated thoracic kyphosis, and spinal stimulator wires in the midthoracic spinal canal.
5. Diffuse bone demineralization.
TTE 03/12/2024: Left ventricle is underfilled. Hyperdynamic LV systolic function. LVEF > 75%. No regional wall motion abnormalities. RV is top normal in size with normal systolic function.
No significant valvular disease. No evidence of pulmonary hypertension though right heart pressures could not be determined. No prior study available for comparison.
-----
Total time spent today was 35 minutes for this encounter. Time includes reviewing laboratory test/imaging results, reviewing pertinent medical records, obtaining and reviewing medical history, performing an appropriate exam, ordering medications,
tests and procedures. Time also includes documentation of this encounter, coordinating patient care and communicating with other healthcare professionals. Total time does not include separately billed tests performed on this date of service.
Subjective Data
-
Date of Service:
Date of Service: March 17, 2024
Chief Complaint: Pulmonary Follow Up
Subjective:
No events ON, remains unchanged
Objective Data
Data Reviewed
Vital Signs / I&O / Oxygen:
Vital Signs
Temp Pulse Resp BP Pulse Ox
98.5 F 71 16 132/61 96
03/17/24 07:59 03/17/24 08:56 03/17/24 07:59 03/17/24 08:56 03/17/24 07:59
Intake and Output
03/16/24 03/17/24 03/18/24
06:59 06:59 06:59
Intake Total 1320 / 1320 720 / 720
Output Total 750 / 750 1000 / 1000
Balance 570 / 570 -280 / -280
SaO2 96
Nasal Cannula flow liters per 2
minute
Physical Exam
General: Respiratory Distress (negative), Comfortable, Chills (negative), Sweats (negative) and Good Appetite
HEENT: Normocephalic and Anicteric
Cardiovascular: S1-S2, Murmur (negative) and Peripheral Edema (negative)
Respiratory: Clear, Wheeze (negative), Rhonchi (negative) and Non-Labored Respirations
GI: Soft, Non Distended, Non Tender and Normal Bowel Sounds
Neurology: Awake, Alert, Oriented, No Motor Deficits and Tremors (negative)
Skin: Warm, Dry, Cyanosis (negative) and Jaundice (negative)
Labs/Micro/Reports
Lab Data
03/16/24 06:16
03/16/24 06:16
Microbiology
03/12/24 08:14 Feces/Stool Salmonella/Shigella Culture - Final
No Salmonella, Shigella, Aeromonas or Plesiomonas species
isolated.
03/12/24 08:14 Feces/Stool Campylobacter Culture - Final
No Campylobacter species isolated.
03/12/24 08:14 Feces/Stool Shiga Toxin Test - Final
No E. coli Shiga Toxin 1 or 2 detected.
--- NOTE | 2024-03-17 10:18 | CM ---
Addendum entered by Aparna Lamb RN 03/17/24 14:28:
Fax for independent living at [facility][Note 3]: [phone]
Fax for [facility]: [phone]
Original Note:
Reviewed the chart notes and spoke with the patient at the bedside. Portable O2 tank was delivered to bedside by [employer] last night and the patient was provided with the information to call them when she is on her way home for delivery of the
concentrator. CM continues to be available to patient/family and is monitoring medical plan for needs at discharge.
Plan: Discharge to home with [facility] and O2 via [employer].
--- NOTE | 2024-03-17 13:10 | W.DS.TRANS ---
DC Summary - [facility] [employer]
-
Discharge Instructions:
Discharge Diagnosis/Procedures Impression:
Presentation with exertional dyspnea
Acute hypoxic respiratory insufficiency with
pulse ox of 88% on room air.
Bilateral diffuse interstitial pulmonary
infiltrates.
Diarrheal illness with hematochezia
Other conditions:
CAD with prior history of stent.
Essential hypertension
Osteoarthritis
Spinal stenosis.
History of a left hip fracture with ORIF 2022.
Diet 2 Gram Sodium
Blood Work BMP in one week
Instructions:
Stand-Alone Forms:
Changes to Home Medications: Yes
Discharge Medications:
DC Medications w/original date entered in [employer]
acetaminophen 500 mg tablet 1,000 mg PO BID 03/11/24
aspirin 81 mg tablet,delayed release 81 mg PO HS 03/11/24
atorvastatin 10 mg tablet 10 mg PO HS 03/11/24
cholecalciferol (vitamin D3) 25 mcg (1,000 unit) tablet 25 mcg PO DAILYPRN PRN supplement 03/11/24
metoprolol succinate 25 mg tablet,extended release 24 hr 12.5 mg PO HS 03/11/24
nabumetone 500 mg tablet 500 mg PO BID 03/11/24
valsartan 40 mg tablet 40 mg PO DAILY 03/11/24
furosemide 20 mg tablet (Lasix) 20 mg PO Q OTHER DAY #30 tabs 03/17/24
prednisone 10 mg tablet 10 mg PO DIRECTED #30 tabs 03/17/24
Home Medication Changes
Lasix initiated
Steroid taper.
Home O2 initiated
Pending Results: No
[2024-03-17 14:01] VITALS: BP 117/90
[2024-03-17 17:52] LABS: Centromere Antibody 0 AU/mL (0-40)
[2024-03-19 06:19] LABS: Aspergillus fumigatus #1 Ab None Detected (None Detected); Aspergillus fumigatus #6 Ab None Detected (None Detected); Aureobasidium pullulans Ab None Detected (None Detected); Micropolyspora faeni Ab None Detected (None Detected); Pigeon Serum Ab None Detected (None Detected)
== END 2024-03-17 14:09 | disposition home health service (06) | DRG 196 ==
LOC: 2 NORTH 23:25
PROVIDERS: Internal Medicine; ADMITTING PHYSICIAN Hospitalist; ATTENDING PHYSICIAN Internal Medicine; CONSULT PHYSICIAN Internal Medicine Critical Care Medicine; EMERGENCY PHYSICIAN Emergency Medicine
DX: J84.9 Interstitial pulmonary disease, unspecified (principal); J96.01 Acute respiratory failure with hypoxia; J47.0 Bronchiectasis with acute lower respiratory infection; K92.1 Melena; J98.11 Atelectasis; I25.10 Atherosclerotic heart disease of native coronary artery without angina pectoris; J84.89 Other specified interstitial pulmonary diseases; R19.7 Diarrhea, unspecified; I10 Essential (primary) hypertension; M48.061 Spinal stenosis, lumbar region without neurogenic claudication; K44.9 Diaphragmatic hernia without obstruction or gangrene; E55.9 Vitamin D deficiency, unspecified; M47.26 Other spondylosis with radiculopathy, lumbar region; Z66 Do not resuscitate; Z60.2 Problems related to living alone; I25.2 Old myocardial infarction; Z11.52 Encounter for screening for COVID-19; Z95.5 Presence of coronary angioplasty implant and graft; Z87.01 Personal history of pneumonia (recurrent)
CPT/HCPCS: 71046; 71275; 80048; 80053; 82085; 82164; 82550; 82785; 83516; 83735; 83880; 84100; 84145; 84550; 85025; 85027; 85652; 86038; 86039; 86140; 86200; 86225; 86235; 86331; 86430; 86606; 87045; 87046; 87324; 87427; 87449; 87502; 87798; 87811; 93005; 93306; 94640; 96374; 96375; 97116; 97162; 97166; 97530; 99285; Q9967

== ENCOUNTER → 2024-05-11 15:03 | Outpatient (REF) | payer MEDICARE, OTHER, SELFPAY | LOC: HWRAD 15:03 | PROVIDERS: ATTENDING PHYSICIAN Nurse Practitioner Adult Health; FAMILY PHYSICIAN Family Medicine | DX: Z09 Encounter for follow-up examination after completed treatment for conditions other than malignant neoplasm (principal); J96.01 Acute respiratory failure with hypoxia; J84.9 Interstitial pulmonary disease, unspecified; J47.9 Bronchiectasis, uncomplicated | CPT/HCPCS: 71250 ==